=== PATIENT | female | born 1975 | race Caucasian/White ===

== ENCOUNTER 2017-06-30 18:53 | Emergency (ER) | payer MEDICARE, BC ==
[2017-06-30 18:58] VITALS: BP 145/81
--- NOTE | 2017-06-30 19:29 | ER Document Report ---
ED Medical Screen (RME) - General Chief Complaint: Abdominal Pain Stated Complaint: ABDOMINAL PAIN Time Seen by Provider: 06/30/17 19:27 Notes: Patient states she has had about 8 days of left flank pain that radiates to her left abdomen. She states she has seen her regular doctor a chiropractor and a GI doctor about the pain. She has no relief from the pain. She thought maybe she was constipated so she has taken some bowel regimens [id number] and has had a bowel movement but no real change of the pain. She is also being currently treated for urinary tract infection but this does not change the pain. She states that she has mostly been constipated but does have an occasional loose stool. She has some nausea but no vomiting. TRAVEL OUTSIDE OF THE [place] IN LAST 30 DAYS: No - Related Data Allergies/Adverse Reactions: No Known Allergies Allergy (Verified 06/30/17 18:54) Home Medications: Current Home Medications Cetirizine HCl [Zyrtec 10 mg Tablet] 1 tab PO DAILY 06/30/17 [History] Ciprofloxacin HCl [Cipro] 1 tab PO BID 06/30/17 [History] Hydrochlorothiazide 1 tab PO DAILY 06/30/17 [History] Losartan Potassium 1 tab PO DAILY 06/30/17 [History] Montelukast Sodium [Singulair 10 mg Tablet] 1 tab PO DAILY 06/30/17 [History] Past Medical History - Social History Frequency of alcohol use: None Drug Abuse: None - Past Medical History Cardiac Medical History: Denies: Hx Heart Attack, Hx Hypertension Pulmonary Medical History: Denies: Hx Asthma Neurological Medical History: Denies: Hx Cerebrovascular Accident, Hx Seizures Renal/ Medical History: Denies: Hx Peritoneal Dialysis GI Medical History: Denies: Hx Hepatitis, Hx Hiatal Hernia, Hx Ulcer Musculoskeltal Medical History: Reports Hx Multiple Sclerosis Infectious Medical History: Denies: Hx Hepatitis Past Surgical History: Reports: Hx Cholecystectomy. Denies: Hx Mastectomy, Hx Open Heart Surgery, Hx Pacemaker - Immunizations Immunizations up to date: Yes Hx Diphtheria, Pertussis, Tetanus Vaccination: Yes Physical Exam - Vital signs Vitals: Temp Pulse Resp BP Pulse Ox 98.0 F 84 16 145/81 H 99 06/30/17 18:57 06/30/17 18:57 06/30/17 18:57 06/30/17 18:57 06/30/17 18:57 Course - Vital Signs Vital signs: Temp Pulse Resp BP Pulse Ox 98.0 F 84 16 145/81 H 99 06/30/17 18:57 06/30/17 18:57 06/30/17 18:57 06/30/17 18:57 06/30/17 18:57
[2017-06-30 20:01] LABS: ABSOLUTE BASOPHILS # (AUTO) 0.1 10^3/uL (0.0-0.2); ABSOLUTE EOSINOPHILS # (AUTO) 0.2 10^3/uL (0.0-0.6); ABSOLUTE LYMPHOCYTES (AUTO) 3.6 10^3/uL (0.5-4.7); ABSOLUTE MONOCYTES (AUTO) 0.8 10^3/uL (0.1-1.4); EOSINOPHILS % (AUTO) 2.1 % (0-6); HEMATOCRIT 44.1 % (36.0-47.0); HEMOGLOBIN 14.7 g/dL (12.0-15.5); LYMPHOCYTES % (AUTO) 30.5 % (13-45); MEAN CORPUSCULAR HEMOGLOBIN 29.6 pg (27.0-33.4); MEAN CORPUSCULAR HGB CONC 33.3 g/dL (32.0-36.0); MEAN CORPUSCULAR VOLUME 89 fl (80-97); MONOCYTES % (AUTO) 6.6 % (3-13); RED BLOOD COUNT 4.95 10^6/uL (3.72-5.28); RED CELL DISTRIBUTION WIDTH 13.5 % (11.5-14.0); SEGMENTED NEUTROPHILS % (AUTO) 59.8 % (42-78); WHITE BLOOD COUNT 11.6 10^3/uL (4.0-10.5)
[2017-06-30 20:07] LABS: APPEARANCE,URINE CLEAR; BILIRUBIN,URINE NEGATIVE (NEGATIVE); GLUCOSE, URINE NEGATIVE (NEGATIVE); KETONES,URINE NEGATIVE (NEGATIVE); LEUKOCYTE ESTERASE,URINE NEGATIVE (NEGATIVE); NITRITE,URINE NEGATIVE (NEGATIVE); PROTEIN,URINE NEGATIVE (NEGATIVE); URINE SPECIFIC GRAVITY 1.012; UROBILINOGEN,URINE NEGATIVE mg/dL (<2.0)
[2017-06-30 20:14] LABS: ALANINE AMINOTRANSFERASE 36 U/L (9-52); ALBUMIN 4.7 g/dL (3.5-5.0); ALKALINE PHOSPHATASE 58 U/L (38-126); ANION GAP 12 (5-19); ASPARTATE AMINO TRANSFERASE 19 U/L (14-36); BILIRUBIN,DIRECT 0.3 mg/dL (0.0-0.4); BILIRUBIN,TOTAL 0.4 mg/dL (0.2-1.3); BLOOD UREA NITROGEN 15 mg/dL (7-20); CALCIUM 10.2 mg/dL (8.4-10.2); CARBON DIOXIDE 27 mmol/L (22-30); CHLORIDE 102 mmol/L (98-107); CREATININE RESULT 0.85 mg/dL (0.52-1.25); GLUCOSE 95 mg/dL (75-110); POTASSIUM 3.8 mmol/L (3.6-5.0); SODIUM 141.2 mmol/L (137-145)
--- NOTE | 2017-06-30 20:18 | ER Document Report ---
ED GI/ - General Chief Complaint: Abdominal Pain Stated Complaint: ABDOMINAL PAIN Time Seen by Provider: 06/30/17 19:27 Notes: The patient is a 41-year-old female, past medical history chronic constipation, presents with about 2 weeks of left upper quadrant abdominal pain and left flank pain. She was started on Cipro about 5 days ago by her primary care physician for possible kidney infection, but the pain is still present. She is also having some hematuria. Patient has seen her GI doctor and chiropractor for this issue this week. She denies nausea, vomiting, fevers, dysuria, headache, numbness, tingling, diarrhea, constipation or rash. TRAVEL OUTSIDE OF THE [place] IN LAST 30 DAYS: No - Related Data Allergies/Adverse Reactions: No Known Allergies Allergy (Verified 06/30/17 18:54) Home Medications: Current Home Medications Cetirizine HCl [Zyrtec 10 mg Tablet] 1 tab PO DAILY 06/30/17 [History] Ciprofloxacin HCl [Cipro] 1 tab PO BID 06/30/17 [History] Hydrochlorothiazide 1 tab PO DAILY 06/30/17 [History] Losartan Potassium 1 tab PO DAILY 06/30/17 [History] Montelukast Sodium [Singulair 10 mg Tablet] 1 tab PO DAILY 06/30/17 [History] Past Medical History - General Information source: Patient - Social History Smoking Status: Never Smoker Frequency of alcohol use: None Drug Abuse: None Family History: Reviewed & Not Pertinent Patient has suicidal ideation: No Patient has homicidal ideation: No - Past Medical History Cardiac Medical History: Denies: Hx Heart Attack, Hx Hypertension Pulmonary Medical History: Denies: Hx Asthma Neurological Medical History: Denies: Hx Cerebrovascular Accident, Hx Seizures Renal/ Medical History: Denies: Hx Peritoneal Dialysis GI Medical History: Denies: Hx Hepatitis, Hx Hiatal Hernia, Hx Ulcer Musculoskeltal Medical History: Reports Hx Multiple Sclerosis Infectious Medical History: Denies: Hx Hepatitis Past Surgical History: Reports: Hx Cholecystectomy. Denies: Hx Mastectomy, Hx Open Heart Surgery, Hx Pacemaker - Immunizations Immunizations up to date: Yes Hx Diphtheria, Pertussis, Tetanus Vaccination: Yes Review of Systems - Review of Systems Notes: REVIEW OF SYSTEMS: CONSTITUTIONAL: -fevers, -chills EENT: -eye pain, -difficulty swallowing, -nasal congestion CARDIOVASCULAR:-chest pain, -syncope. RESPIRATORY: -cough, -SOB GASTROINTESTINAL: +LUQ abdominal pain, -nausea, -vomiting, -diarrhea GENITOURINARY: -dysuria, +hematuria MUSCULOSKELETAL: +left flank pain, -neck pain SKIN: -rash or skin lesions. HEMATOLOGIC: -easy bruising or bleeding. LYMPHATIC: -swollen, enlarged glands. NEUROLOGICAL: -altered mental status or loss of consciousness, -headache, - neurologic symptoms PSYCHIATRIC: -anxiety, -depression. ALL OTHER SYSTEMS REVIEWED AND NEGATIVE. Physical Exam - Vital signs Vitals: Temp Pulse Resp BP Pulse Ox 98.0 F 84 16 145/81 H 99 06/30/17 18:57 06/30/17 18:57 06/30/17 18:57 06/30/17 18:57 06/30/17 18:57 - Notes Notes: PHYSICAL EXAMINATION: GENERAL: Well-appearing, well-nourished and in no acute distress. HEAD: Atraumatic, normocephalic. EYES: Pupils equal round and reactive to light, extraocular movements intact, sclera anicteric, conjunctiva are normal. ENT: nares patent, oropharynx clear without exudates. Moist mucous membranes. NECK: Normal range of motion, supple without lymphadenopathy LUNGS: Breath sounds clear to auscultation bilaterally and equal. No wheezes rales or rhonchi. HEART: Regular rate and rhythm without murmurs ABDOMEN: Soft, nontender, normoactive bowel sounds. No guarding, no rebound. No masses appreciated. EXTREMITIES: Normal range of motion, no pitting or edema. No cyanosis. NEUROLOGICAL: Cranial nerves grossly intact. Normal speech, normal gait. Normal sensory and motor exams. PSYCH: Normal mood, normal affect. SKIN: Warm, Dry, normal turgor, no rashes or lesions noted. Course - Re-evaluation Re-evalutation: Patient's pain ongoing for the past 2 weeks and has already seen her primary care physician, and GI doctor and chiropractor. CT abdomen/pelvis performed to assess for presence of kidney stones, but no left-sided kidney stones seen. Blood work and urine are unremarkable. Patient will follow up with her primary care physician and GI doctor for further evaluation and treatment. - Vital Signs Vital signs: Temp Pulse Resp BP Pulse Ox 98.0 F 84 16 145/81 H 99 06/30/17 18:57 06/30/17 18:57 06/30/17 18:57 06/30/17 18:57 06/30/17 18:57 - Laboratory Result Diagrams: 06/30/17 19:48 06/30/17 19:48 Laboratory results interpreted by me: 06/30/17 06/30/17 19:48 19:48 WBC 11.6 H Urine Blood MODERATE H - Diagnostic Test Radiology reviewed: Image reviewed, Reports reviewed Radiology results interpreted by me: CT A/P: NAD Discharge - Discharge Clinical Impression: Left flank pain Abdominal pain Qualifiers: Abdominal location: left upper quadrant Qualified Code(s): R10.12 - Left upper quadrant pain Condition: Stable Disposition: HOME, SELF-CARE Additional Instructions: ABDOMINAL PAIN: There are many causes of abdominal pain. Pain can mean a serious problem requiring surgery (such as appendicitis). It can also be an innocent problem that goes away on its own (such as a viral infection). Often, time must pass to determine the cause of pain. The physician does not feel that hospitalization is necessary, at present. Things may change within the next 24 hours. Call the doctor or come back for re- examination if any problems occur, such as: (1) Pain that becomes more severe, steady, or becomes concentrated in one specific area. Also, pain that is more severe with movement or coughing. (2) Vomiting that persists or becomes more frequent. (3) Blood in the vomitus, urine, or bowel movements. Blood in the stool may have a tarry or black appearance. (4) Shaking chills or fever greater than 100 degrees F. (5) The abdomen becomes more distended or swollen. (6) Bowel movements cease. (7) Failure to improve as expected. NORMAL EXAM AND WORKUP: At this time, your examination and workup show no significant abnormality. No significant abnormal physical findings are noted. All laboratory, EKG, and imaging (x-ray, CT scans, ultrasound) studies that were ordered show no significant abnormality. Although your examination and all studies that were ordered showed no significant abnormal finding, there are no examinations and no studies that are 100% accurate. There is always the possibility that some abnormality could exist and not be detected with physical examination or within the limits and capabilities of laboratory and other studies. You should return or follow up as you were instructed on your visit today for further evaluation if your symptoms do not resolve. FOLLOW-UP CARE: If you have been referred to a physician for follow-up care, call the physician s office for an appointment as you were instructed or within the next two days. If you experience worsening or a significant change in your symptoms, notify the physician immediately or return to the Emergency Department at any time for re-evaluation. Flank Pain We weren't able to prove an exact cause for your flank pain. Pain in the flank can be caused by a muscle strain or spasm. Sometimes a kidney stone causes pain, but can't be found on our tests. Infection in the kidney should be evident on a urine test. Early shingles can occasionally cause flank pain, without the rash that proves the diagnosis. On rare occasions, disease of the pancreas, aorta, spleen, or colon can create pain in the flank. At this time, there's no evidence of a dangerous condition, and it seems safe for you to be at home. If the pain goes away and does not come back, no further testing will be needed. If pain persists, or becomes more severe, we may need to repeat some tests or order additional new testing. Blood in the urine, urgency to urinate frequently, and pain that radiates to the groin can indicate a kidney stone. Fever may mean that the pain is due to infection, either of the kidney or the colon (diverticulitis). If your pain is early shingles, you should develop an eruption of blisters in the painful area within a few days. Call the doctor or return if you have pain that is spreading or becoming more severe, pain that does not resolve with time, fever, or any other new symptoms. Forms: Elevated Blood Pressure Referrals: QUINTON SOLORIO MD [ACTIVE STAFF] - Follow up as needed
--- NOTE | 2017-06-30 20:40 | RADIOLOGY REPORT (SQ) ---
EXAM DESCRIPTION: CT LTD RENAL STONE PROTOCOL ON COMPLETED DATE/TIME: 06/30/2017 8:23 pm REASON FOR STUDY: left flank pain, hematuria COMPARISON: None. TECHNIQUE: CT scan of the abdomen and pelvis performed without intravenous or oral contrast. Images reviewed with lung, soft tissue, and bone windows. Reconstructed coronal and sagittal MPR images revi ewed. All images stored on PACS. All CT scanners at this facility use dose modulation, iterative reconstruction, and/or weight based d osing when appropriate to reduce radiation dose to as low as reasonably achievable (ALARA). [facility]: Dose Right [facility]: CareDose [facility]: Dose Right [facility]: Teradose 4D [facility]: [employer] RADIATION DOSE: CT Rad equipment meets quality standard of care and radiation dose reduction techniq ues were employed. CTDIvol: 18.7 mGy. DLP: 1008 mGy-cm.mGy. LIMITATIONS: None. FINDINGS: LOWER CHEST: No significant findings. No nodules or infiltrates. NON-CONTRASTED LIVER, SPLEEN, ADRENALS: Evaluation limited by lack of IV contrast. No identified sign ificant masses. PANCREAS: No masses. No peripancreatic inflammatory changes. GALLBLADDER: No identified stones by CT criteria. No inflammatory changes to suggest cholecystitis. RIGHT KIDNEY AND URETER: No suspicious masses. Assessment limited by lack of IV contrast. Small par enchymal calcifications. No hydronephrosis or hydroureter. LEFT KIDNEY AND URETER: No suspicious masses. Assessment limited by lack of IV contrast. No signifi cant calcifications. No hydronephrosis or hydroureter. AORTA AND RETROPERITONEUM: No aneurysm. No retroperitoneal masses or adenopathy. BOWEL AND PERITONEAL CAVITY: No obvious masses or inflammatory changes. No free fluid. APPENDIX: Normal. PELVIS, BLADDER, AND ABDOMINAL WALL:No abnormal masses. No free fluid. Bladder normal. BONES: No acute findings. OTHER: No other significant finding. IMPRESSION: NO ACUTE PROCESS IN THE ABDOMEN OR PELVIS. No hydronephrosis or hydroureter. Right neph rolithiasis. COMMENT: Quality ID # [id number]: Final reports with documentation of one or more dose reduction techniques (e.g., Automated exposure control, adjustment of the mA and/or kV according to patient size, use of iterative reconstruction technique) TECHNICAL DOCUMENTATION: JOB ID: [id number] [place]-72 2010 [employer]- All Rights Reserved
== END 2017-06-30 21:05 | disposition home or self-care (01) ==
LOC: ER 18:53
DX: R10.12 Left upper quadrant pain (principal); R31.9 Hematuria, unspecified; G35 Multiple sclerosis; Z90.49 Acquired absence of other specified parts of digestive tract
CPT/HCPCS: 36415; 76380; 80053; 81001; 85025; 99284

== ENCOUNTER 2017-08-26 07:20 | Emergency (ER) | payer MEDICARE, BC ==
--- NOTE | 2017-08-26 07:41 | ER Document Report ---
ED Cardiac - General Chief Complaint: Chest Tightness Stated Complaint: CHEST TIGHTNESS Time Seen by Provider: 08/26/17 07:39 Mode of Arrival: Ambulatory Information source: Patient Notes: Patient is a 42-year-old female who presents to the ER today for chest tightness that began yesterday. Patient has MS and also last month was diagnosed with H. 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 Patient was given amoxicillin, clarithromycin and omeprazole to start, however she states she never started it because she followed up with her primary care provider who then diagnosed her with a sinus infection, told her not to take 3 medications, gave her a different antibiotic instead and told her that "they would reevaluate in a month if she needed to take the medications for H. pylori or not." Patient states that since that time she has had chest pain in the center of her chest but yesterday got worse. She admits to nausea but denies any vomiting or shortness of breath. She is on blood pressure medication but denies any history of cholesterol issues, heart attack or stroke. She denies any vomiting or diarrhea, fevers or chills. TRAVEL OUTSIDE OF THE [place] IN LAST 30 DAYS: No - Related Data Allergies/Adverse Reactions: No Known Allergies Allergy (Verified 06/30/17 18:54) Past Medical History - General Information source: Patient - Social History Smoking Status: Never Smoker Family History: Reviewed & Not Pertinent - Past Medical History Cardiac Medical History: Denies: Hx Heart Attack, Hx Hypertension Pulmonary Medical History: Denies: Hx Asthma Neurological Medical History: Denies: Hx Cerebrovascular Accident, Hx Seizures Renal/ Medical History: Denies: Hx Peritoneal Dialysis GI Medical History: Denies: Hx Hepatitis, Hx Hiatal Hernia, Hx Ulcer Musculoskeltal Medical History: Reports Hx Multiple Sclerosis Infectious Medical History: Denies: Hx Hepatitis Past Surgical History: Reports: Hx Cholecystectomy. Denies: Hx Mastectomy, Hx Open Heart Surgery, Hx Pacemaker - Immunizations Immunizations up to date: Yes Hx Diphtheria, Pertussis, Tetanus Vaccination: Yes Review of Systems - Review of Systems Constitutional: No symptoms reported EENT: No symptoms reported Cardiovascular: See HPI Respiratory: No symptoms reported Gastrointestinal: See HPI Genitourinary: No symptoms reported Female Genitourinary: No symptoms reported Musculoskeletal: No symptoms reported Skin: No symptoms reported Hematologic/Lymphatic: No symptoms reported Neurological/Psychological: No symptoms reported Physical Exam - Notes Notes: PHYSICAL EXAMINATION: GENERAL: Anxious appearing, but in no acute distress. HEAD: Atraumatic, normocephalic. EYES: Pupils equal round and reactive to light, extraocular movements intact, sclera anicteric, conjunctiva are normal. ENT: ear canals without erythema or foreign body, TMs pearly wills with good bony landmarks, nares patent, oropharynx clear without exudates. Moist mucous membranes. NECK: Normal range of motion, supple without lymphadenopathy LUNGS: CTAB and equal. No wheezes rales or rhonchi. HEART: Regular rate and rhythm without murmurs ABDOMEN: Soft, mild epigastric tenderness. No guarding, no rebound BACK: no vertebral tenderness, normal ROM GI/: no CVA tenderness EXTREMITIES: Normal range of motion, no pitting edema. No cyanosis. NEUROLOGICAL: Cranial nerves grossly intact. Normal sensory/motor exams. PSYCH: Anxious SKIN: Warm, Dry, normal turgor, no rashes or lesions noted Course - Re-evaluation Re-evalutation: 08/26/17 11:34 Lab work is unremarkable including normal cardiac enzymes, EKG reveals a normal sinus rhythm without evidence of ischemia or abnormality. Chest x-ray reports no acute pathology, CT renal protocol was performed due to patient having some blood in her urine and stating that she has a kidney stone, however did report a kidney stone in the right kidney that is nonobstructing and should not be causing any pain. Patient did not feel any better after GI cocktail. She was indeed quite anxious here in the emergency department even asking about other patients she could hear and stating that she was worried about them. I think that anxiety is a large component of patient's chest discomfort today although I think the H. pylori diagnosis that is gone untreated may also have a large role in her chest pain. I have advised her to start her amoxicillin, clarithromycin and omeprazole that she already has filled and waiting on her at home but just was instructed not to take it. H. pylori was drawn and is pending at this time. - Laboratory Result Diagrams: 08/26/17 07:54 08/26/17 07:54 Laboratory results interpreted by me: 08/26/17 08/26/17 08/26/17 07:54 07:54 09:20 WBC 11.1 H Glucose 152 H Urine Protein 30 H Urine Ketones 80 H Urine Blood SMALL H Discharge - Discharge Clinical Impression: Helicobacter pylori (H. pylori) Chest pain Qualifiers: Chest pain type: unspecified Qualified Code(s): R07.9 - Chest pain, unspecified Condition: Stable Disposition: HOME, SELF-CARE Additional Instructions: Return immediately for any new or worsening symptoms. Follow up with primary care provider, call tomorrow to make followup appointment. Prescriptions: Amoxicillin 500 mg PO BID #8 capsule Clarithromycin 500 mg PO TID #12 tablet Fluconazole [Diflucan] 200 mg PO PRN PRN #2 tablet PRN Reason: Lactobacillus 3/Fos/Pantethine [Probiotic & Acidophilus Cap] 1 each PO DAILY # 30 capsule Omeprazole 20 mg PO DAILY #42 tablet. Sucralfate [Carafate 1 gm Tablet] 1 gm PO ACHS #40 tablet Forms: Return to Work Referrals: SERA MCGRAW MD [Primary Care Provider] - Follow up as needed
[2017-08-26] MEDS ORDERED: DIPHENHYDRAMINE HCL 25 MG/10 ML UDC PO ONE (08:09)
[2017-08-26] MEDS ORDERED: MAG HYDROX/AL HYDROX/SIMETH SUSP 30 ML UDCUP PO ONE (08:09)
[2017-08-26] MEDS ORDERED: LIDOCAINE 2% VISCOUS SOLN 20 ML UDCUP PO ONE (08:09)
[2017-08-26 08:19] LABS: ABSOLUTE BASOPHILS # (AUTO) 0.1 10^3/uL (0.0-0.2); ABSOLUTE EOSINOPHILS # (AUTO) 0.2 10^3/uL (0.0-0.6); ABSOLUTE LYMPHOCYTES (AUTO) 2.7 10^3/uL (0.5-4.7); ABSOLUTE MONOCYTES (AUTO) 0.6 10^3/uL (0.1-1.4); ABSOLUTE NEUT (AUTO) 7.6 10^3/uL (1.7-8.2); BASOPHILS % (AUTO) 0.6 % (0-2); EOSINOPHILS % (AUTO) 1.6 % (0-6); HEMATOCRIT 41.2 % (36.0-47.0); HEMOGLOBIN 13.9 g/dL (12.0-15.5); LYMPHOCYTES % (AUTO) 24.6 % (13-45); MEAN CORPUSCULAR HEMOGLOBIN 29.8 pg (27.0-33.4); MEAN CORPUSCULAR HGB CONC 33.7 g/dL (32.0-36.0); MEAN CORPUSCULAR VOLUME 89 fl (80-97); MONOCYTES % (AUTO) 5.2 % (3-13); PLATELET COUNT 318 10^3/uL (150-450); RED BLOOD COUNT 4.65 10^6/uL (3.72-5.28); RED CELL DISTRIBUTION WIDTH 12.9 % (11.5-14.0); TOTAL CELLS COUNTED % (AUTO) 100 %; WHITE BLOOD COUNT 11.1 10^3/uL (4.0-10.5)
[2017-08-26 08:33] LABS: ALANINE AMINOTRANSFERASE 29 U/L (9-52); ALBUMIN 4.2 g/dL (3.5-5.0); ALKALINE PHOSPHATASE 50 U/L (38-126); ANION GAP 11 (5-19); ASPARTATE AMINO TRANSFERASE 18 U/L (14-36); BILIRUBIN,DIRECT 0.4 mg/dL (0.0-0.4); BILIRUBIN,TOTAL 0.6 mg/dL (0.2-1.3); BLOOD UREA NITROGEN 18 mg/dL (7-20); CALCIUM 9.6 mg/dL (8.4-10.2); CARBON DIOXIDE 24 mmol/L (22-30); CHLORIDE 103 mmol/L (98-107); CREATINE KINASE 43 U/L (30-135); GLUCOSE 152 mg/dL (75-110); LIPASE 78.5 U/L (23-300); POTASSIUM 4.4 mmol/L (3.6-5.0); TOTAL PROTEIN 7.1 g/dL (6.3-8.2)
--- NOTE | 2017-08-26 08:33 | RADIOLOGY REPORT (SQ) ---
EXAM DESCRIPTION: CHEST SINGLE VIEW COMPLETED DATE/TIME: 08/26/2017 8:23 am REASON FOR STUDY: cp COMPARISON: None. EXAM PARAMETERS: NUMBER OF VIEWS: One view. TECHNIQUE: Single frontal radiographic view of the chest acquired. RADIATION DOSE: NA LIMITATIONS: None. FINDINGS: LUNGS AND PLEURA: No opacities, masses or pneumothorax. No pleural effusion. MEDIASTINUM AND HILAR STRUCTURES: No masses. Contour normal. HEART AND VASCULAR STRUCTURES: Heart normal in size. Normal vasculature. BONES: No acute findings. HARDWARE: None in the chest. OTHER: No other significant finding. IMPRESSION: NO ACUTE RADIOGRAPHIC FINDING IN THE CHEST. TECHNICAL DOCUMENTATION: JOB ID: [id number] [employer]- All Rights Reserved
[2017-08-26 08:44] LABS: CREATINE KINASE MB 0.39 ng/mL (<4.55)
[2017-08-26 08:47] LABS: TROPONIN I < 0.012 ng/mL
[2017-08-26] MEDS ORDERED: LORAZEPAM INJ 2 MG/1 ML VIAL IV ONE (09:41)
[2017-08-26 09:48] LABS: AMORPHOUS SEDIMENT,URINE TRACE /HPF; APPEARANCE,URINE CLOUDY; BILIRUBIN,URINE NEGATIVE (NEGATIVE); COLOR,URINE YELLOW; GLUCOSE, URINE NEGATIVE (NEGATIVE); KETONES,URINE 80 mg/dL (NEGATIVE); LEUKOCYTE ESTERASE,URINE NEGATIVE (NEGATIVE); NITRITE,URINE NEGATIVE (NEGATIVE); PROTEIN,URINE 30 mg/dL (NEGATIVE); URINE SPECIFIC GRAVITY 1.031; UROBILINOGEN,URINE NEGATIVE mg/dL (<2.0)
[2017-08-26] MEDS ORDERED: KETOROLAC TROMETHAMINE INJ/PF 30 MG/1 ML SDV IV ONE (09:52)
[2017-08-26 10:09] LABS: URINE AMPHETAMINES SCREEN NEGATIVE; URINE BARBITURATES SCREEN NEGATIVE; URINE BENZODIAZEPINES SCREEN NEGATIVE; URINE COCAINE SCREEN NEGATIVE; URINE MARIJUANA (THC) SCREEN NEGATIVE; URINE METHADONE SCREEN NEGATIVE; URINE PHENCYCLIDINE SCREEN NEGATIVE
--- NOTE | 2017-08-26 10:41 | RADIOLOGY REPORT (SQ) ---
EXAM DESCRIPTION: CT LTD RENAL STONE PROTOCOL ON COMPLETED DATE/TIME: 08/26/2017 10:31 am REASON FOR STUDY: hematuria, flank pain COMPARISON: 06/30/2017 TECHNIQUE: CT scan of the abdomen and pelvis performed without intravenous or oral contrast. Images reviewed with lung, soft tissue, and bone windows. Reconstructed coronal and sagittal MPR images revi ewed. All images stored on PACS. All CT scanners at this facility use dose modulation, iterative reconstruction, and/or weight based d osing when appropriate to reduce radiation dose to as low as reasonably achievable (ALARA). [facility]: Dose Right [facility]: CareDose [facility]: Dose Right [facility]: Teradose 4D [facility]: Smart [employer] RADIATION DOSE: CT Rad equipment meets quality standard of care and radiation dose reduction techniq ues were employed. CTDIvol: 18.0 mGy. DLP: 1050 mGy-cm.mGy. LIMITATIONS: None. FINDINGS: LOWER CHEST: No significant findings. No nodules or infiltrates. NON-CONTRASTED LIVER, SPLEEN, ADRENALS: Evaluation limited by lack of IV contrast. No identified sign ificant masses. PANCREAS: No masses. No peripancreatic inflammatory changes. GALLBLADDER: Surgically absent. RIGHT KIDNEY AND URETER: No suspicious masses. Assessment limited by lack of IV contrast. 2 mm ston e lower pole. No hydronephrosis or hydroureter. LEFT KIDNEY AND URETER: No suspicious masses. Assessment limited by lack of IV contrast. No signifi cant calcifications. No hydronephrosis or hydroureter. AORTA AND RETROPERITONEUM: No aneurysm. No retroperitoneal masses or adenopathy. BOWEL AND PERITONEAL CAVITY: No obvious masses or inflammatory changes. No free fluid. APPENDIX: Normal. PELVIS, BLADDER, AND ABDOMINAL WALL:Small umbilical hernia containing fat. BONES: No significant findings. OTHER: No other significant finding. IMPRESSION: Small nonobstructing stone right kidney. COMMENT: Quality ID # [id number]: Final reports with documentation of one or more dose reduction techniques (e.g., Automated exposure control, adjustment of the mA and/or kV according to patient size, use of iterative reconstruction technique) TECHNICAL DOCUMENTATION: JOB ID: [id number] [employer]- All Rights Reserved
--- NOTE | 2017-08-26 11:06 | EKG REPORT ---
SEVERITY:- NORMAL ECG - SINUS RHYTHM : Confirmed by: Mango Day 26-Aug-2017 11:05:12
[2017-08-26 12:04] VITALS: BP 109/60
[2017-08-26] MEDS ORDERED: HYDROXYZINE PAMOATE 25 MG CAPSULE (4 CAP/ER DISP) PO PRN (12:38)
== END 2017-08-26 12:33 | disposition home or self-care (01) ==
LOC: ER 07:20
DX: B96.81 Helicobacter pylori [H. pylori] as the cause of diseases classified elsewhere (principal); R07.9 Chest pain, unspecified; G35 Multiple sclerosis; R11.0 Nausea; Z79.899 Other long term (current) drug therapy; I10 Essential (primary) hypertension
CPT/HCPCS: 93005; 99285; 96374; 96375; 36415; 82553; 82550; 83690; 85025; 81025; 80053; 81001; 84484; 80307; 71045; 76380; 93010; A9270; J3490 ×2; J1885; J2060

== ENCOUNTER 2017-08-31 09:22 | Observation (INO) | payer MEDICARE, BC, OTHER ==
[2017-08-25] MEDS: ZOLPIDEM TARTRATE 5 MG TABLET PO PRN (00:20)
[2017-08-31] MEDS ORDERED: ASPIRIN 325 MG TABLET PO ONE (10:15)
--- NOTE | 2017-08-31 10:16 | ER Document Report ---
ED Medical Screen (RME) - General Chief Complaint: Chest Pain Stated Complaint: CHEST PAIN Time Seen by Provider: 08/31/17 10:14 Mode of Arrival: Ambulatory Information source: Patient Notes: This is patient's third visit for chest pain in the last week. She states she has been told it is anxiety but she does not feel this is correct and the anxiety meds have not changed the pain. She is also been diagnosed with sinusitis and is on antibiotics. She is also been diagnosed with reflux and H. pylori. She states she has chest pain now going to the left arm. It started this morning. No previous history of cardiac evaluations. She was never a smoker. Patient does have hypertension. TRAVEL OUTSIDE OF THE [place] IN LAST 30 DAYS: No - Related Data Allergies/Adverse Reactions: No Known Allergies Allergy (Verified 06/30/17 18:54) Past Medical History - Social History Chew tobacco use (# tins/day): No Frequency of alcohol use: None Drug Abuse: None - Past Medical History Cardiac Medical History: Denies: Hx Heart Attack, Hx Hypertension Pulmonary Medical History: Denies: Hx Asthma Neurological Medical History: Denies: Hx Cerebrovascular Accident, Hx Seizures Renal/ Medical History: Denies: Hx Peritoneal Dialysis GI Medical History: Denies: Hx Hepatitis, Hx Hiatal Hernia, Hx Ulcer Musculoskeltal Medical History: Reports Hx Multiple Sclerosis Infectious Medical History: Denies: Hx Hepatitis Past Surgical History: Reports: Hx Cholecystectomy. Denies: Hx Mastectomy, Hx Open Heart Surgery, Hx Pacemaker - Immunizations Immunizations up to date: Yes Hx Diphtheria, Pertussis, Tetanus Vaccination: Yes Physical Exam - Vital signs Vitals: Temp Pulse Resp BP Pulse Ox 99 F 77 20 98/54 L 99 08/31/17 09:42 08/31/17 09:42 08/31/17 09:42 08/31/17 09:42 08/31/17 09:42 Course - Vital Signs Vital signs: Temp Pulse Resp BP Pulse Ox 99 F 77 20 116/88 H 99 08/31/17 09:42 08/31/17 09:42 08/31/17 09:42 08/31/17 10:09 08/31/17 09:42
[2017-08-31 10:42] LABS: APPEARANCE,URINE SLIGHTLY-CLOUDY; BILIRUBIN,URINE NEGATIVE (NEGATIVE); COLOR,URINE YELLOW; GLUCOSE, URINE NEGATIVE (NEGATIVE); KETONES,URINE TRACE mg/dL (NEGATIVE); LEUKOCYTE ESTERASE,URINE NEGATIVE (NEGATIVE); NITRITE,URINE NEGATIVE (NEGATIVE); PROTEIN,URINE NEGATIVE (NEGATIVE); URINE SPECIFIC GRAVITY 1.015; UROBILINOGEN,URINE NEGATIVE mg/dL (<2.0)
[2017-08-31 10:52] LABS: ABSOLUTE EOSINOPHILS # (AUTO) 0.1 10^3/uL (0.0-0.6); ABSOLUTE LYMPHOCYTES (AUTO) 2.2 10^3/uL (0.5-4.7); ABSOLUTE MONOCYTES (AUTO) 0.4 10^3/uL (0.1-1.4); ABSOLUTE NEUT (AUTO) 7.2 10^3/uL (1.7-8.2); BASOPHILS % (AUTO) 0.3 % (0-2); HEMATOCRIT 42.2 % (36.0-47.0); HEMOGLOBIN 14.4 g/dL (12.0-15.5); MEAN CORPUSCULAR HGB CONC 34.2 g/dL (32.0-36.0); MEAN CORPUSCULAR VOLUME 88 fl (80-97); MONOCYTES % (AUTO) 4.3 % (3-13); PLATELET COUNT 354 10^3/uL (150-450); RED CELL DISTRIBUTION WIDTH 13.3 % (11.5-14.0); SEGMENTED NEUTROPHILS % (AUTO) 72.4 % (42-78); TOTAL CELLS COUNTED % (AUTO) 100 %
[2017-08-31 11:19] LABS: ALANINE AMINOTRANSFERASE 51 U/L (9-52); ALBUMIN 4.9 g/dL (3.5-5.0); ALKALINE PHOSPHATASE 57 U/L (38-126); ANION GAP 14 (5-19); ASPARTATE AMINO TRANSFERASE 25 U/L (14-36); BILIRUBIN,DIRECT 0.1 mg/dL (0.0-0.4); BILIRUBIN,TOTAL 0.5 mg/dL (0.2-1.3); BLOOD UREA NITROGEN 15 mg/dL (7-20); CALCIUM 10.1 mg/dL (8.4-10.2); CARBON DIOXIDE 21 mmol/L (22-30); CHLORIDE 106 mmol/L (98-107); GLUCOSE 152 mg/dL (75-110); POTASSIUM 4.8 mmol/L (3.6-5.0); SODIUM 141.2 mmol/L (137-145); TOTAL PROTEIN 7.6 g/dL (6.3-8.2)
--- NOTE | 2017-08-31 11:22 | ER Document Report ---
ED Cardiac - General Chief Complaint: Chest Pain Stated Complaint: CHEST PAIN Time Seen by Provider: 08/31/17 10:14 Mode of Arrival: Ambulatory Notes: 42-year-old obese female patient to the emergency department chief complaint of chest pain. Patient states that she was seen here last week on Tuesday for chest pain. Was told that it was likely an ulcer in development because she had a positive H. pylori. Was placed on medications. Patient states that she has been taking the medications but not getting any better. Now the pain is radiating up into the left shoulder and down the left arm. Patient is very tearful. Father of a heart attack in his 60s but it was attributed to agent orange. Mother is a smoker with no medical problems. Patient denies smoking. No heavy alcohol use. Has a 7-year-old home. Nothing seems to make the pain better or worse. TRAVEL OUTSIDE OF THE [place] IN LAST 30 DAYS: No - HPI Patient complains to provider of: Chest pain, Chest tightness Quality of pain: Moderate Chest pain radiation location: Left arm, Left shoulder Severity now: Moderate Severity at worst: Moderate Pain level currently: 2 - Related Data Allergies/Adverse Reactions: No Known Allergies Allergy (Verified 06/30/17 18:54) Past Medical History - General Information source: Patient - Social History Smoking Status: Never Smoker Chew tobacco use (# tins/day): No Frequency of alcohol use: None Drug Abuse: None Lives with: Spouse/Significant other Family History: Reviewed & Not Pertinent Patient has suicidal ideation: No Patient has homicidal ideation: No - Past Medical History Cardiac Medical History: Reports: Hx Hypertension Denies: Hx Heart Attack Pulmonary Medical History: Denies: Hx Asthma Neurological Medical History: Denies: Hx Cerebrovascular Accident, Hx Seizures Renal/ Medical History: Denies: Hx Peritoneal Dialysis GI Medical History: Denies: Hx Hepatitis, Hx Hiatal Hernia, Hx Ulcer Musculoskeltal Medical History: Reports Hx Multiple Sclerosis Infectious Medical History: Denies: Hx Hepatitis Past Surgical History: Reports: Hx Cholecystectomy. Denies: Hx Mastectomy, Hx Open Heart Surgery, Hx Pacemaker - Immunizations Immunizations up to date: Yes Hx Diphtheria, Pertussis, Tetanus Vaccination: Yes Review of Systems - Review of Systems Constitutional: No symptoms reported. denies: Fever, Malaise, Weakness EENT: No symptoms reported. denies: Blurred vision, Double vision, Ear pain Cardiovascular: No symptoms reported, Chest pain. denies: Palpitations, Heart racing Respiratory: No symptoms reported Gastrointestinal: No symptoms reported, Diarrhea. denies: Abdominal pain, Vomiting Genitourinary: No symptoms reported Female Genitourinary: No symptoms reported. denies: , Vaginal discharge , Vaginal bleeding Musculoskeletal: No symptoms reported. denies: Back pain, Joint pain, Joint swelling, Muscle pain Skin: No symptoms reported. denies: Dryness, Lesions, Rash Hematologic/Lymphatic: No symptoms reported. denies: Anemia, Blood clots, Easy bleeding, Easy bruising Neurological/Psychological: No symptoms reported. denies: Depression, Weakness , Numbness Physical Exam - Vital signs Vitals: Temp Pulse Resp BP Pulse Ox 99 F 77 20 98/54 L 99 08/31/17 09:42 08/31/17 09:42 08/31/17 09:42 08/31/17 09:42 08/31/17 09:42 Interpretation: Normal - General General appearance: Appears well, Alert - HEENT Head: Normocephalic, Atraumatic Eyes: Normal Pupils: PERRL - Respiratory Respiratory status: No respiratory distress Chest status: Nontender Breath sounds: Normal Chest palpation: Normal - Cardiovascular Rhythm: Regular Heart sounds: Normal auscultation Murmur: No - Abdominal Inspection: Normal Distension: No distension Bowel sounds: Normal Tenderness: Nontender Organomegaly: No organomegaly - Back Back: Normal, Nontender - Extremities General upper extremity: Normal inspection, Nontender, Normal color, Normal ROM , Normal temperature General lower extremity: Normal inspection, Nontender, Normal color, Normal ROM , Normal temperature, Normal weight bearing. No: Anastasia's sign - Neurological Neuro grossly intact: Yes Cognition: Normal Orientation: AAOx4 Metcalf Coma Scale Eye Opening: Spontaneous Metcalf Coma Scale Verbal: Oriented Pedro Luis Coma Scale Motor: Obeys Commands Metcalf Coma Scale Total: 15 Speech: Normal Motor strength normal: LUE, RUE, LLE, RLE Sensory: Normal - Psychological Associated symptoms: Normal affect, Normal mood - Skin Skin Temperature: Warm Skin Moisture: Dry Skin Color: Normal Course - Re-evaluation Re-evalutation: 08/31/17 11:58 She is quite tearful. Obviously scared. Patient is nervous that she may be having heart problems. She definitely has some risk factors including morbid obesity and hypertension and positive family history. Basic workup at this time is negative with conclusion d-dimer. At this time I believe patient would benefit from a stress test but will need multiple cardiac enzymes. Will place in observation at this time for a rule out. Patient is comfortable with this plan. 08/31/17 12:02 Laboratory 08/31/17 08/31/17 08/31/17 10:21 10:36 10:36 WBC 10.0 RBC 4.80 Hgb 14.4 Hct 42.2 MCV 88 MCH 30.0 MCHC 34.2 RDW 13.3 Plt Count 354 Seg Neutrophils % 72.4 Lymphocytes % 22.0 Monocytes % 4.3 Eosinophils % 1.0 Basophils % 0.3 Absolute Neutrophils 7.2 Absolute Lymphocytes 2.2 Absolute Monocytes 0.4 Absolute Eosinophils 0.1 Absolute Basophils 0.0 D-Dimer < 0.27 Sodium Potassium Chloride Carbon Dioxide Anion Gap BUN Creatinine Est GFR ( Amer) Est GFR (Non-Af Amer) Glucose Calcium Total Bilirubin Direct Bilirubin Neonat Total Bilirubin Neonat Direct Bilirubin Neonat Indirect Bili AST ALT Alkaline Phosphatase Troponin I Total Protein Albumin Urine Color YELLOW Urine Appearance SLIGHTLY-CLOUDY Urine pH 5.0 Ur Specific [place] 1.015 Urine Protein NEGATIVE Urine Glucose (UA) NEGATIVE Urine Ketones TRACE H Urine Blood SMALL H Urine Nitrite NEGATIVE Urine Bilirubin NEGATIVE Urine Urobilinogen NEGATIVE Ur Leukocyte Esterase NEGATIVE Urine WBC (Auto) 1 Urine RBC (Auto) 1 Squamous Epi Cells Auto 13 Urine Mucus (Auto) RARE Urine Ascorbic Acid NEGATIVE Urine HCG, Qual NEGATIVE 08/31/17 08/31/17 10:36 10:36 WBC RBC Hgb Hct MCV MCH MCHC RDW Plt Count Seg Neutrophils % Lymphocytes % Monocytes % Eosinophils % Basophils % Absolute Neutrophils Absolute Lymphocytes Absolute Monocytes Absolute Eosinophils Absolute Basophils D-Dimer Sodium 141.2 Potassium 4.8 Chloride 106 Carbon Dioxide 21 L Anion Gap 14 BUN 15 Creatinine 0.79 Est GFR ( Amer) > 60 Est GFR (Non-Af Amer) > 60 Glucose 152 H Calcium 10.1 Total Bilirubin 0.5 Direct Bilirubin 0.1 Neonat Total Bilirubin Not Reportable Neonat Direct Bilirubin Not Reportable Neonat Indirect Bili Not Reportable AST 25 ALT 51 Alkaline Phosphatase 57 Troponin I < 0.012 Total Protein 7.6 Albumin 4.9 Urine Color Urine Appearance Urine pH Ur Specific [place] Urine Protein Urine Glucose (UA) Urine Ketones Urine Blood Urine Nitrite Urine Bilirubin Urine Urobilinogen Ur Leukocyte Esterase Urine WBC (Auto) Urine RBC (Auto) Squamous Epi Cells Auto Urine Mucus (Auto) Urine Ascorbic Acid Urine HCG, Qual Chest X-Ray 08/31/17 11:22 IMPRESSION: NO ACUTE RADIOGRAPHIC FINDING IN THE CHEST. Consulted with the hospitalist. Will admit to the hospital at this time for further testing and rule out of AR. Patient will need a stress test. Patient has hypertension, probable diabetes and is obese with a positive family history. - Vital Signs Vital signs: Temp Pulse Resp BP Pulse Ox 99 F 77 20 116/88 H 99 08/31/17 09:42 08/31/17 09:42 08/31/17 09:42 08/31/17 10:09 08/31/17 09:42 - Laboratory Result Diagrams: 08/31/17 10:36 08/31/17 10:36 Laboratory results interpreted by me: 08/31/17 08/31/17 10:21 10:36 Carbon Dioxide 21 L Glucose 152 H Urine Ketones TRACE H Urine Blood SMALL H - EKG Interpretation by Oh EKG shows normal: Sinus rhythm, [place], Intervals, QRS Complexes, ST-T Waves Discharge - Discharge Clinical Impression: Chest pain Qualifiers: Chest pain type: unspecified Qualified Code(s): R07.9 - Chest pain, unspecified Condition: Good Disposition: ADMITTED OBSERVATION Admitting Provider: Hospitalist - Sara Gomez Unit Admitted: Telemetry Referrals: SERA MCGRAW MD [Primary Care Provider] - Follow up as needed
--- NOTE | 2017-08-31 11:51 | RADIOLOGY REPORT (SQ) ---
EXAM DESCRIPTION: CHEST SINGLE VIEW COMPLETED DATE/TIME: 08/31/2017 11:32 am REASON FOR STUDY: cp COMPARISON: AP chest 08/26/2017 EXAM PARAMETERS: NUMBER OF VIEWS: One view. TECHNIQUE: Single frontal radiographic view of the chest acquired. RADIATION DOSE: NA LIMITATIONS: None. FINDINGS: LUNGS AND PLEURA: No opacities, masses or pneumothorax. No pleural effusion. MEDIASTINUM AND HILAR STRUCTURES: No masses. Contour normal. HEART AND VASCULAR STRUCTURES: Heart normal in size. Normal vasculature. BONES: No acute findings. HARDWARE: None in the chest. OTHER: No other significant finding. IMPRESSION: NO ACUTE RADIOGRAPHIC FINDING IN THE CHEST. TECHNICAL DOCUMENTATION: JOB ID: [id number] [email or web address]- All Rights Reserved
[2017-08-31] MEDS ORDERED: MORPHINE SULFATE 10 MG/ML INJ IV PRN (13:22)
--- NOTE | 2017-08-31 13:51 | EKG REPORT ---
SEVERITY:- NORMAL ECG - SINUS RHYTHM : Confirmed by: Jose Hsieh MD 31-Aug-2017 13:51:18
[2017-08-31] MEDS ORDERED: LIDOCAINE 2% VISCOUS SOLN 20 ML UDCUP PO PRN (15:06)
[2017-08-31] MEDS ORDERED: PANTOPRAZOLE SODIUM 40 MG VIAL IV ONE (15:45)
--- NOTE | 2017-08-31 20:28 | PDOC H&P ---
History of Present Illness Admission Date/PCP: 08/31/17 12:24 SERA MCGRAW MD Patient complains of: CHEST PAIN History of Present Illness: WILLAM ANTHONY is a 42 year old female who presented to the emergency department with chest pain. She states that her mid-sternal chest pressure started Saturday 08/26 and has been waxing/waning since then. She was evaluated at [facility] ED for the same complaint on 08/26 but her symptoms were thought to be related to her recent diagnosis of H. pylori. She was treated with Maalox and viscous lidocaine, then discharged home. The patient became concerned this morning when she woke up with the same chest pain that was now radiating to her left upper arm. The patient states she took Tums, which offered no relief. The patient states her pain is not exacerbated with activity or deep breathing. She states that her pain has been constant since this morning. While in the emergency department she was given full dose aspirin. Patient states she is still experiencing chest pain. PMH includes hypertension, multiple sclerosis (untreated), H pylori Past Medical History Cardiac Medical History: Reports: Hypertension Denies: Myocardial Infarction Pulmonary Medical History: Denies: Asthma Neurological Medical History: Denies: Seizures Neurological History Note: MULTIPLE SCLEROSIS (UNMEDICATED) GI Medical History: Reports: Peptic Ulcer Disease, Other - H.Pylori Denies: Hepatitis, Hiatal Hernia GI History Note: Colonoscopy and EGD done because patient was having episodes of stool incontinence. Discovered H.pylori as incidental finding Hematology: Denies: Anemia, Sickle Cell Disease Past Surgical History Past Surgical History: Reports: Cholecystectomy Denies: Amputation, Mastectomy, Pacemaker Social History Information Source: Patient Lives with: Spouse/Significant other Smoking Status: Never Smoker Family History Family History: CAD, Other - FATHER - [place] Parental Family History Reviewed: Yes Children Family History Reviewed: Yes Sibling(s) Family History Reviewed.: Yes Medication/Allergy Home Medications: Amoxicillin 1,000 mg PO Q12 08/31/17 Clarithromycin [Biaxin 500 mg Tablet] 1 tab PO Q12 08/31/17 L.acidoph,Paracasei, B.lactis [Probiotic] 1 each PO DAILY 08/31/17 Losartan Potassium [Cozaar 50 mg Tablet] 50 mg PO DAILY 08/31/17 Melatonin [Melatonin 5 mg Tablet] 10 mg PO QHS 08/31/17 Omeprazole 20 mg PO Q12 08/31/17 Allergies/Adverse Reactions: No Known Allergies Allergy (Verified 06/30/17 18:54) Review of Systems Constitutional: ABSENT: chills, fever(s), headache(s), weight gain, weight loss Eyes: ABSENT: visual disturbances Ears: ABSENT: hearing changes Cardiovascular: PRESENT: chest pain - ENDORSES CONSTANT. ABSENT: dyspnea on exertion, edema, orthropnea, palpitations Respiratory: ABSENT: cough, hemoptysis Gastrointestinal: PRESENT: heartburn. ABSENT: abdominal pain, constipation, diarrhea, hematemesis, hematochezia, nausea, vomiting Genitourinary: ABSENT: dysuria, hematuria Musculoskeletal: ABSENT: joint swelling Integumentary: ABSENT: rash, wounds Neurological: ABSENT: abnormal gait, abnormal speech, confusion, dizziness, focal weakness, syncope Psychiatric: ABSENT: anxiety, depression, homidical ideation, suicidal ideation Endocrine: ABSENT: cold intolerance, heat intolerance, polydipsia, polyuria Hematologic/Lymphatic: ABSENT: easy bleeding, easy bruising Physical Exam Vital Signs: Temp Pulse Resp BP Pulse Ox 99 F 77 11 L 122/73 99 08/31/17 09:42 08/31/17 09:42 08/31/17 13:01 08/31/17 13:01 08/31/17 13:01 General appearance: PRESENT: no acute distress, well-developed, well-nourished Head exam: PRESENT: atraumatic, normocephalic Eye exam: PRESENT: conjunctiva pink, EOMI, PERRLA. ABSENT: scleral icterus Ear exam: PRESENT: normal external ear exam Mouth exam: PRESENT: moist, tongue midline Neck exam: ABSENT: carotid bruit, JVD, lymphadenopathy, thyromegaly Respiratory exam: PRESENT: clear to auscultation melonie. ABSENT: rales, rhonchi, wheezes Cardiovascular exam: PRESENT: RRR, +S1, +S2. ABSENT: diastolic murmur, rubs, systolic murmur Pulses: PRESENT: normal radial pulses, normal dorsalis pedis pul Vascular exam: PRESENT: normal capillary refill GI/Abdominal exam: PRESENT: normal bowel sounds, soft. ABSENT: distended, guarding, mass, organolmegaly, rebound, tenderness Rectal exam: PRESENT: deferred Extremities exam: PRESENT: full ROM. ABSENT: calf tenderness, clubbing, pedal edema Neurological exam: PRESENT: alert, awake, oriented to person, oriented to place , oriented to time, oriented to situation, CN II-XII grossly intact. ABSENT: motor sensory deficit Psychiatric exam: PRESENT: appropriate affect, normal mood. ABSENT: homicidal ideation, suicidal ideation Skin exam: PRESENT: dry, intact, warm. ABSENT: cyanosis, rash Results Impressions: Chest X-Ray 08/31/17 11:22 IMPRESSION: NO ACUTE RADIOGRAPHIC FINDING IN THE CHEST. Status: Imported from PACS Assessment & Plan - Diagnosis (1) Chest pain Qualifiers: Chest pain type: unspecified Qualified Code(s): R07.9 - Chest pain, unspecified Is this a current diagnosis for this admission?: Yes Plan: Sternal chest pressure. Patient states it started last Saturday 08/26. She came to the emergency department that day for her chest pain, but her symptoms were believed to be related to her recent diagnosis of H. pylori. She was discharged home after receiving a GI cocktail of Maalox and viscous lidocaine. The patient states that her chest pain persisted throughout the day and into Tuesday and Tuesday. She reports that her chest pain returned again this morning, and she became worried when the pain radiated to her left upper arm, so she returned to the emergency department. While in the ED she received 325 mg of aspirin, and states she has no relief. D-dimer negative. Her EKG shows normal sinus rhythm with no evidence of acute ischemia or infarct. Troponin < 0.27, will continue to trend every 6 hours 2. Cardiology has been consulted. Routine echocardiogram and stress test have been ordered. Morphine and SL nitro as needed for chest pain. At this time, I don't believe that her symptoms are cardiac in nature - given her normal EKG, normal cardiac enzymes, and atypical symptoms. I will trial a cocktail of maalox and viscous lidocaine to see if that offers relief. if results of Echo, blood work, and stress test are benign, patient will likely be discharged home and instructed to follow up with her PMD and rehabilitation therapy technician. (2) Helicobacter pylori (H. pylori) Is this a current diagnosis for this admission?: Yes Plan: Patient states she was recently diagnosed with H pylori. This is an incidental finding by her rehabilitation therapy technician. She was being worked up for bowel incontinence, thought to be related to her MS, when it was discovered that she was +H pylori. Her ?rehabilitation therapy technician? originally instructed her NOT to take amoxicillin, Flagyl, clarithromycin, as she was taking antibiotics at the time for a sinus infection. When the patient came to the ER 08/26, she was instructed by the ER physician to start taking her antibiotic regimen for H pylori. The patient states she does not like taking the medications because "they give me diarrhea" so it is unclear how compliant she has been with her therapy. She will be restarted on these medications as soon as her condition stabilizes. (3) Hypertension Qualifiers: Hypertension type: essential hypertension Qualified Code(s): I10 - Essential (primary) hypertension Is this a current diagnosis for this admission?: Yes Plan: Patient has a history of HTN, will continue home medication of [place]. She has remained NORMOtensive. (4) Multiple sclerosis Is this a current diagnosis for this admission?: Yes Plan: The patient reports a history of multiple sclerosis. She is currently not taking any medication, states that she was previously taking an unknown medication but stopped 3 years ago. - Time Time Spent: 30 to 50 Minutes Medications reviewed and adjusted accordingly: Yes Anticipated discharge: Home Within: within 36 hours - Inpatient Certification Based on my medical assessment, after consideration of the patient's comorbidities, presenting symptoms, or acuity I expect that the services needed warrant INPATIENT care.: Yes I certify that my determination is in accordance with my understanding of Medicare's requirements for reasonable and necessary INPATIENT services [42 CFR 412.3e].: Yes Medical Necessity: Risk of Complication if Not Cared For in Hospital - Plan Summary Plan Summary: ULTIMATELY, DISCHARGE HOME
--- NOTE | 2017-08-31 20:35 | PDOC CONSULTATION ---
Consultation Consult Date: 08/31/17 Attending physician:: ROMELIA DICKENS Consult reason:: Chest pain History of Present Illness Admission Date/PCP: 08/31/17 12:24 SERA MCGRAW MD Patient complains of: Chest pain History of Present Illness: WILLAM ANTHONY is a 42 year old female who presented to the emergency department with chest pain. She states that her mid-sternal chest pressure started Saturday 08/26 and has been waxing/waning since then. She was evaluated at [facility] for the same complaint on 08/26 but her symptoms were thought to be related to her recent diagnosis of H. pylori. She was treated with Maalox and viscous lidocaine, then discharged home. The patient became concerned this morning when she woke up with the same chest pain that was now radiating to her left upper arm. The patient states she took Tums, which offered no relief. The patient states her pain is not exacerbated with activity or deep breathing. She states that her pain has been constant since this morning. While in the emergency department she was given full dose aspirin. Patient states she is still experiencing chest pain. This history was reviewed and confirmed. Patient lab work reviewed. Patient describes history of sleep apnea evaluation about a year ago but this was noted to be negative. Given patient's comorbid diagnosis, oropharyngeal exam, obesity, I feel that this could have been a false negative test. PMH includes hypertension, multiple sclerosis (untreated), H pylori Past Medical History Cardiac Medical History: Reports: Hypertension Denies: Congestive Heart Failure, Myocardial Infarction Pulmonary Medical History: Denies: Asthma, Bronchitis, Chronic Obstructive Pulmonary Disease (COPD), Pneumonia, Tuberculosis Neurological Medical History: Denies: Seizures Renal/ Medical History: Denies: End Stage Renal Disease GI Medical History: Reports: Peptic Ulcer Disease, Other - H.Pylori Denies: Cirrhosis, Gastroesophageal Reflux Disease, Hepatitis, Hiatal Hernia Musculoskeltal Medical History: Denies: Arthritis Psychiatric Medical History: Denies: Bipolar Disorder, Depression Hematology: Denies: Anemia, Sickle Cell Disease, Bleeding Tendencies Past Surgical History Past Surgical History: Reports: Cholecystectomy Denies: Amputation, Mastectomy, Pacemaker Social History Information Source: Patient Lives with: Spouse/Significant other Smoking Status: Never Smoker Drugs: None - Advance Directive Resuscitation Status: Full Code Family History Family History: CAD, Other - FATHER - [place] Parental Family History Reviewed: Yes Children Family History Reviewed: Yes Sibling(s) Family History Reviewed.: Yes - Father had myocardial infarction at the young age. Medication/Allergy Home Medications: Amoxicillin 1,000 mg PO Q12 08/31/17 Clarithromycin [Biaxin 500 mg Tablet] 1 tab PO Q12 08/31/17 L.acidoph,Paracasei, B.lactis [Probiotic] 1 each PO DAILY 08/31/17 Losartan Potassium [Cozaar 50 mg Tablet] 50 mg PO DAILY 08/31/17 Melatonin [Melatonin 5 mg Tablet] 10 mg PO QHS 08/31/17 Omeprazole 20 mg PO Q12 08/31/17 Allergies/Adverse Reactions: No Known Allergies Allergy (Verified 06/30/17 18:54) Review of Systems Review of Systems: Please see history of present illness and past medical history as wall. Constitutional: No fever or chills reported. Head : No recent chronic headaches, recent head injury. Eyes: No recent eye pain, diplopia, redness, discharge, acute visual changes. Ears: No recent chronic ear pain, acute hearing loss, ear discharge. Oral cavity: No recent ulcerations, bleeding, oral cavity discomfort. Neck: No recent acute neck pain reported. Hematologic: No recent easy bruising or bleeding or hematologic malignancy reported. Lymphatic: No recent lymphatic malignancy, chronic lymphadenopathy reported yet Cardiovascular system review: See history of present illness. Respiratory system review: No recent chronic cough, hemoptysis, blood clots in the lungs reported. Mild Shortness of breath on exertion Gastrointestinal system review: Negative for any recent acute or chronic abdominal pain, hematemesis, melena, recent change in bowel habits. Genitourinary system review: No recent acute or chronic hematuria, flank pain, UTI etc. reported. Skin system review: Negative for any recent abnormal bruising, no rash, no pruritus reported. Neurologic: No prior history of strokes, mini strokes, seizure disorder. Psychologic: No history of major psychosis or major depression reported. Musculoskeletal: Minor aches and pains reported. No acute joint swelling reported. Endocrine: No recent polyuria, polydipsia, recent heat or cold intolerance. Physical Exam Vital Signs: Temp Pulse Resp BP Pulse Ox 98.6 F 116 H 16 104/50 L 98 08/31/17 16:04 08/31/17 18:34 08/31/17 16:04 08/31/17 16:04 08/31/17 16:04 Intake & Output 08/30/17 08/31/17 09/01/17 06:59 06:59 06:59 Weight 107.4 kg Exam: GENERAL: well-nourished and in no acute distress. Alert and oriented x3 HEAD: Atraumatic, normocephalic. EYES: Pupils equal round and reactive to light, extraocular movements intact, sclera anicteric, conjunctiva are normal. ENT: TMs normal, nares patent, oropharynx clear without exudates. Moist mucous membranes. No oral ulcerations or bleeding gums noted NECK: supple without lymphadenopathy. Trachea is central. No cervical or axillary lymphadenopathy noted. Carotids are 2+, JVD WNL LUNGS: Respiration seems nonlabored, no significant accessory muscle action noted. Breath sounds clear to auscultation bilaterally and equal noted. No wheezes rales or rhonchi noted. No significant dullness noted on percussion. CHEST: Palpation of the chest wall shows no significant chest wall tenderness. No other significant abnormalities noted. 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 ABDOMEN: Soft, no significant tenderness appreciated, normoactive bowel sounds. No guarding, no rebound. No rigidity noted . No masses appreciated. EXTREMITIES: Pedal pulses are 1-2+, no calf tenderness noted. No clubbing or cyanosis.trace to 1+ pedal edema noted NEUROLOGICAL: Focused neurological exam showed no significant neurologic deficit. Normal speech, no focal weakness appreciated. PSYCH: Normal mood, normal affect. Judgment and insight within normal limits. SKIN: No significant ecchymosis, rash, ulcerations or signs of pruritus noted. MUSCULOSKELETAL EXAM: No significant joint swelling noted. Results Laboratory Results: 08/31/17 16:30 Troponin I < 0.012 EKG Comments: Sinus rhythm, no acute ST-T wave changes noted Impressions: Chest X-Ray 08/31/17 11:22 IMPRESSION: NO ACUTE RADIOGRAPHIC FINDING IN THE CHEST. Assessment & Plan - Diagnosis (1) Chest pain Qualifiers: Chest pain type: unspecified Qualified Code(s): R07.9 - Chest pain, unspecified Is this a current diagnosis for this admission?: Yes (2) Hypertension Qualifiers: Hypertension type: essential hypertension Qualified Code(s): I10 - Essential (primary) hypertension Is this a current diagnosis for this admission?: Yes (3) Obesity Qualifiers: Obesity type: unspecified obesity type Serious obesity comorbidity presence : unspecified whether serious comorbidity present Is this a current diagnosis for this admission?: Yes (4) Sleep disorder Is this a current diagnosis for this admission?: Yes (5) Helicobacter pylori (H. pylori) Is this a current diagnosis for this admission?: Yes - Notes Notes: Chest pain: Patient has some typical and atypical features of chest pain. Cardiac enzymes so far has been negative. Electrocardiogram did not show any definitive ST segment changes. Multiple differential diagnoses exist in this patient. In descending order of probability this includes underlying coronary artery disease, gastroesophageal reflux, musculoskeletal pain, referred pain from elsewhere, anxiety panic disorder etc.Patient has significant cardiac risk factors, which indicates that there is a intermediate probability of chest discomfort coming from underlying CAD. Feel that it would need to be evaluated further. Discussed evaluation to assess this. In this regard risk benefits of nuclear stress test and other alternative processes were discussed in detail. The patient prefers to undergo nuclear stress test. The small risk of radiation , myocardial infarction, , cardiac arrhythmias, respiratory distress etc. were discussed. Patient understood the risks and gave informed consent. Nuclear stress test was therefore scheduled. For risk evaluation, patient is also being scheduled for a 2-D echocardiogram. Patient questions were answered. Blood pressure goal in this patient is 140/90 or less. This was discussed with the patient. Currently blood pressure under reasonable control. Better medication for this patient are SUSAN inhibitor/ARB/beta jenifer etc. discussed side effects of uncontrolled hypertension and also severe hypotension. Obesity : Discussed adverse effect of overweight/obesity on cardiovascular event rate, sleep apnea, diabetes and hypertension et cetera. Patient has been recommended weight loss. Prediabetes: Patient describes a glycohemoglobin of 6.2 performed recently. Patient will benefit from carbohydrate restriction, weight loss, metformin therapy. Treatment of sleep apnea if noted also prevents progression to diabetes. Sleep disorder: This is strongly suspected. Discussed that she might benefit from a repeat study. Helicobacter pylori infection: Continue current therapy. - Time Time Spent: 30 to 50 Minutes - CODE STATUS was discussed, patient remains full code. Surrogate decision-maker unchanged. Multiple medical problems were addressed. More than 50% of the time spent coordinating care, discussing management plans with involved caregivers. Management plans discussed with involved personnels. Medical decision making was of moderate to high complexity , patient's has multiple comorbidities. Medications reviewed and adjusted accordingly: Yes
[2017-08-31 21:44] LABS: CHOLESTEROL 206.47 mg/dL (0-200); TRIGLYCERIDES 156 mg/dL (<150)
[2017-08-31 21:55] LABS: DIRECT LDL 122 mg/dL (<100)
[2017-08-31 21:58] LABS: VLDL CHOLESTEROL 31.2 mg/dL (10-31)
[2017-08-31] MEDS: MAG HYDROX/AL HYDROX/SIMETH SUSP 30 ML UDCUP PO PRN (22:54)
[2017-09-01] MEDS ORDERED: ZOLPIDEM TARTRATE 5 MG TABLET ONE (00:09)
[2017-09-01] MEDS: ZOLPIDEM TARTRATE 5 MG TABLET PO PRN ×2 (00:20→21:09)
[2017-09-01 05:23] LABS: ANION GAP 10 (5-19); BLOOD UREA NITROGEN 14 mg/dL (7-20); CALCIUM 9.1 mg/dL (8.4-10.2); CARBON DIOXIDE 23 mmol/L (22-30); CHLORIDE 108 mmol/L (98-107); CHOLESTEROL 192.88 mg/dL (0-200); GLUCOSE 109 mg/dL (75-110); PHOSPHORUS 4.1 mg/dL (2.5-4.5); POTASSIUM 4.2 mmol/L (3.6-5.0); SODIUM 140.6 mmol/L (137-145); TRIGLYCERIDES 142 mg/dL (<150)
[2017-09-01 05:29] LABS: ABSOLUTE BASOPHILS # (AUTO) 0.1 10^3/uL (0.0-0.2); ABSOLUTE EOSINOPHILS # (AUTO) 0.2 10^3/uL (0.0-0.6); ABSOLUTE LYMPHOCYTES (AUTO) 3.5 10^3/uL (0.5-4.7); ABSOLUTE MONOCYTES (AUTO) 0.7 10^3/uL (0.1-1.4); BASOPHILS % (AUTO) 0.6 % (0-2); EOSINOPHILS % (AUTO) 1.7 % (0-6); HEMATOCRIT 42.3 % (36.0-47.0); HEMOGLOBIN 14.4 g/dL (12.0-15.5); LYMPHOCYTES % (AUTO) 33.8 % (13-45); MEAN CORPUSCULAR HEMOGLOBIN 30.1 pg (27.0-33.4); MEAN CORPUSCULAR HGB CONC 34.1 g/dL (32.0-36.0); MEAN CORPUSCULAR VOLUME 88 fl (80-97); MONOCYTES % (AUTO) 6.8 % (3-13); PLATELET COUNT 239 10^3/uL (150-450); RED BLOOD COUNT 4.79 10^6/uL (3.72-5.28); RED CELL DISTRIBUTION WIDTH 13.1 % (11.5-14.0); SEGMENTED NEUTROPHILS % (AUTO) 57.1 % (42-78); TOTAL CELLS COUNTED % (AUTO) 100 %; WHITE BLOOD COUNT 10.5 10^3/uL (4.0-10.5)
[2017-09-01 05:35] LABS: DIRECT LDL 111 mg/dL (<100)
[2017-09-01] MEDS ORDERED: KETOROLAC TROMETHAMINE INJ/PF 30 MG/1 ML SDV IV PRN ×2 (09:01→16:43)
[2017-09-01] MEDS ORDERED: ONDANSETRON ODT 4 MG TAB (6 TAB/ER DISP) PO PRN (09:01)
[2017-09-01] MEDS ORDERED: PANTOPRAZOLE SODIUM 40 MG VIAL IV SCH (10:00)
[2017-09-01] MEDS ORDERED: CLARITHROMYCIN 500 MG TABLET PO ONE (10:30)
[2017-09-01] MEDS ORDERED: TAMSULOSIN HCL 0.4 MG CAP.SR.24H PO ONE (11:00)
[2017-09-01] MEDS ORDERED: NORMAL SALINE 1000 ML 1,000 ML IV ONE (11:00)
[2017-09-01] MEDS: ONDANSETRON 4 MG TAB.RAPDIS PO PRN (11:19)
[2017-09-01] MEDS: METRONIDAZOLE 500 MG TABLET PO SCH ×2 (12:05→21:10)
[2017-09-01] MEDS: ASPIRIN 81 MG TABLET, CHEWABLE PO SCH (12:07)
[2017-09-01] MEDS: AMOXICILLIN TRIHYDRATE 500 MG CAPSULE PO SCH ×2 (12:08→21:09)
--- NOTE | 2017-09-01 13:20 | RADIOLOGY REPORT (SQ) ---
EXAM DESCRIPTION: CT CHEST WITHOUT COMPLETED DATE/TIME: 09/01/2017 11:35 am REASON FOR STUDY: chest pain R07.9 CHEST PAIN, UNSPECIFIED R07.1 CHEST PAIN ON BREATHING COMPARISON: Chest x-ray dated 08/31/2017. TECHNIQUE: CT scan performed of the chest without intravenous contrast. Images reviewed with lung, soft tissue and bone windows. Reconstructed coronal and sagittal MPR images reviewed. All images st ored on PACS. All CT scanners at this facility use dose modulation, iterative reconstruction, and/or weight based d osing when appropriate to reduce radiation dose to as low as reasonably achievable (ALARA). [facility]: Dose Right [facility]: CareDose [facility]: Dose Right [facility]: Teradose 4D [facility]: [employer] Technologies RADIATION DOSE: CT Rad equipment meets quality standard of care and radiation dose reduction techniq ues were employed. CTDIvol: 17.7 mGy. DLP: 690 mGy-cm. mGy. LIMITATIONS: No technical limitations. FINDINGS: LUNGS AND PLEURA: No masses, infiltrates, pneumothorax. No pleural effusions, calcificati ons. HILAR AND MEDIASTINAL STRUCTURES: No identified masses or abnormal nodes. No obvious aneurysm. HEART AND VASCULAR STRUCTURES: No aneurysm. No pericardial effusion. UPPER ABDOMEN: No significant findings. Limited exam. THYROID AND OTHER SOFT TISSUES: Heterogenous nodular appearance of the left lobe with faint calcifica tions, previous evaluated in the past with ultrasound (12/31/2011). No adenopathy. BONES: No significant finding. HARDWARE: None in the chest. OTHER: No other significant findings. IMPRESSION: NO SIGNIFICANT FINDING ON NON-CONTRASTED CHEST CT. TECHNICAL DOCUMENTATION: JOB ID: [id number] Quality ID # [id number]: Final reports with documentation of one or more dose reduction techniques (e.g., Au tomated exposure control, adjustment of the mA and/or kV according to patient size, use of iterative reconstruction technique) 2010 [employer]- All Rights Reserved
--- NOTE | 2017-09-01 13:24 | EKG REPORT ---
SEVERITY:- NORMAL ECG - SINUS RHYTHM : Confirmed by: Jose Hsieh MD 01-Sep-2017 13:24:01
[2017-09-01] MEDS: CLARITHROMYCIN 500 MG TABLET PO SCH (17:23)
[2017-09-01] MEDS: MAG HYDROX/AL HYDROX/SIMETH SUSP 30 ML UDCUP PO PRN (17:24)
[2017-09-01] MEDS ORDERED: TAMSULOSIN HCL 0.4 MG CAP.SR.24H PO SCH (18:00)
--- NOTE | 2017-09-01 19:00 | PDOC PROGRESS REPORT ---
Subjective Progress Note for:: 09/01/17 Subjective:: Patient continues to have intermittent chest pain. In fact her nuclear stress test was canceled this morning as she continued to have chest pain. Patient denying any PND, orthopnea. Patient denied any sustained palpitations, dizziness, syncope, near syncope. Patient denying any fever chills. Patient denying any other significant discomfort. Twelve-lead EKG obtained showed sinus rhythm, no acute ST-T wave changes noted. Patient is maintaining sinus rhythm. Review of systems: Rest review of systems negative. Medications: Medications have been reviewed. Reason For Visit: CHEST PAIN (UNSPECIFIED} Physical Exam Vital Signs: Temp Pulse Resp BP Pulse Ox 99.0 F 76 16 139/66 H 99 09/01/17 07:25 09/01/17 07:25 09/01/17 07:25 09/01/17 07:25 09/01/17 07:25 Intake & Output 08/31/17 09/01/17 09/02/17 06:59 06:59 06:59 Intake Total 240 Output Total 400 Balance -160 Weight 107.4 kg 107.4 kg Exam: GENERAL: well-nourished and in no acute distress. Alert and oriented x3 HEAD: Atraumatic, normocephalic. EYES: Pupils equal round and reactive to light, extraocular movements intact, sclera anicteric, conjunctiva are normal. ENT: TMs normal, nares patent, oropharynx clear without exudates. Moist mucous membranes. No oral ulcerations or bleeding gums noted NECK: supple without lymphadenopathy. Trachea is central. No cervical or axillary lymphadenopathy noted. Carotids are 2+, JVD WNL LUNGS: Respiration seems nonlabored, no significant accessory muscle action noted. Breath sounds clear to auscultation bilaterally and equal noted. No wheezes rales or rhonchi noted. No significant dullness noted on percussion. CHEST: Palpation of the chest wall shows no significant chest wall tenderness. No other significant abnormalities noted. 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 ABDOMEN: Soft, no significant tenderness appreciated, normoactive bowel sounds. No guarding, no rebound. No rigidity noted . No masses appreciated. EXTREMITIES: Pedal pulses are 1-2+, no calf tenderness noted. No clubbing or cyanosis.trace to 1+ pedal edema noted NEUROLOGICAL: Focused neurological exam showed no significant neurologic deficit. Normal speech, no focal weakness appreciated. PSYCH: Normal mood, normal affect. Judgment and insight within normal limits. SKIN: No significant ecchymosis, rash, ulcerations or signs of pruritus noted. MUSCULOSKELETAL EXAM: No significant joint swelling noted. Results Laboratory Results: 09/01/17 04:51 09/01/17 04:51 08/31/17 09/01/17 09/01/17 21:10 04:51 04:51 WBC 10.5 RBC 4.79 Hgb 14.4 Hct 42.3 MCV 88 MCH 30.1 MCHC 34.1 RDW 13.1 Plt Count 239 Seg Neutrophils % 57.1 Lymphocytes % 33.8 Monocytes % 6.8 Eosinophils % 1.7 Basophils % 0.6 Absolute Neutrophils 6.0 Absolute Lymphocytes 3.5 Absolute Monocytes 0.7 Absolute Eosinophils 0.2 Absolute Basophils 0.1 Sodium 140.6 Potassium 4.2 Chloride 108 H Carbon Dioxide 23 Anion Gap 10 BUN 14 Creatinine 0.71 Est GFR ( Amer) > 60 Est GFR (Non-Af Amer) > 60 Glucose 109 Calcium 9.1 Phosphorus 4.1 Triglycerides 156 H 142 Cholesterol 206.47 H 192.88 LDL Cholesterol Direct 122 H 111 H VLDL Cholesterol 31.2 H 28.0 HDL Cholesterol 59 48 08/31/17 08/31/17 16:30 21:10 Troponin I < 0.012 < 0.012 EKG Comments: Sinus rhythm. Acute ST-T wave changes noted. Telemetry shows no significant arrhythmias. Impressions: Chest X-Ray 08/31/17 11:22 IMPRESSION: NO ACUTE RADIOGRAPHIC FINDING IN THE CHEST. Chest CT 09/01/17 09:19 IMPRESSION: NO SIGNIFICANT FINDING ON NON-CONTRASTED CHEST CT. Assessment & Plan - Diagnosis (1) Chest pain Qualifiers: Chest pain type: unspecified Qualified Code(s): R07.9 - Chest pain, unspecified Is this a current diagnosis for this admission?: Yes (2) Hypertension Qualifiers: Hypertension type: essential hypertension Qualified Code(s): I10 - Essential (primary) hypertension Is this a current diagnosis for this admission?: Yes (3) Obesity Qualifiers: Obesity type: unspecified obesity type Serious obesity comorbidity presence : unspecified whether serious comorbidity present Is this a current diagnosis for this admission?: Yes (4) Sleep disorder Is this a current diagnosis for this admission?: Yes (5) Helicobacter pylori (H. pylori) Is this a current diagnosis for this admission?: Yes (6) Generalized anxiety disorder with panic attacks Is this a current diagnosis for this admission?: Yes (7) HLD (hyperlipidemia) Qualifiers: Hyperlipidemia type: unspecified Qualified Code(s): E78.5 - Hyperlipidemia , unspecified Is this a current diagnosis for this admission?: Yes - Notes Notes: Chest pain: Patient was scheduled to have nuclear stress test but this morning she had considerable chest pain and therefore nuclear stress test was canceled. Subsequently EKG came back negative. A CT scan was also negative although it was without contrast. Patient being rescheduled for stress test tomorrow. Patient had a echo ordered which she is not yet performed. Hypertension: Blood pressure under reasonable control. Sleep disorder: Patient will benefit from a sleep study and this can be considered as an outpatient. H pylori infection: Recommend double dose proton pump inhibitor. Hnxiety panic disorder : Patient may have possible underlying anxiety panic disorder. Further plans after review of 2D echo and nuclear stress test results. HLD: start statins - Time Time with patient: Greater than 35 minutes - Pt seen multiple tomes. Ordered CT chest. CODE STATUS was discussed, patient remains full code. Surrogate decision -maker unchanged. Multiple medical problems were addressed. More than 50% of the time spent coordinating care, discussing management plans with involved caregivers. Management plans discussed with involved personnels. Medical decision making was of moderate to high complexity, patient's has multiple comorbidities. Medications reviewed and adjusted accordingly: Yes
[2017-09-01] MEDS: PANTOPRAZOLE SODIUM 40 MG VIAL IV SCH (21:10)
[2017-09-02 07:54] LABS: ABSOLUTE EOSINOPHILS # (AUTO) 0.1 10^3/uL (0.0-0.6); ABSOLUTE LYMPHOCYTES (AUTO) 3.1 10^3/uL (0.5-4.7); BASOPHILS % (AUTO) 0.4 % (0-2); TOTAL CELLS COUNTED % (AUTO) 100 %
[2017-09-02 08:04] LABS: ANION GAP 14 (5-19); BLOOD UREA NITROGEN 13 mg/dL (7-20); CALCIUM 9.4 mg/dL (8.4-10.2); CARBON DIOXIDE 20 mmol/L (22-30); CHLORIDE 106 mmol/L (98-107); GLUCOSE 160 mg/dL (75-110); PHOSPHORUS 3.5 mg/dL (2.5-4.5); POTASSIUM 4.5 mmol/L (3.6-5.0); SODIUM 140.1 mmol/L (137-145)
[2017-09-02 08:06] LABS: ABSOLUTE MONOCYTES (AUTO) 0.6 10^3/uL (0.1-1.4); ABSOLUTE NEUT (AUTO) 7.4 10^3/uL (1.7-8.2); EOSINOPHILS % (AUTO) 1.2 % (0-6); HEMATOCRIT 41.7 % (36.0-47.0); HEMOGLOBIN 14.1 g/dL (12.0-15.5); LYMPHOCYTES % (AUTO) 27.6 % (13-45); MEAN CORPUSCULAR HGB CONC 33.7 g/dL (32.0-36.0); MEAN CORPUSCULAR VOLUME 89 fl (80-97); MONOCYTES % (AUTO) 5.2 % (3-13); PLATELET COUNT 345 10^3/uL (150-450); RED BLOOD COUNT 4.69 10^6/uL (3.72-5.28); RED CELL DISTRIBUTION WIDTH 12.9 % (11.5-14.0); SEGMENTED NEUTROPHILS % (AUTO) 65.6 % (42-78); WHITE BLOOD COUNT 11.3 10^3/uL (4.0-10.5)
--- NOTE | 2017-09-02 11:52 | PDOC PROGRESS REPORT ---
Subjective Progress Note for:: 09/02/17 Subjective:: WILLAM ANTHONY is a 42 year old female who presented to the emergency department with chest pain. She states that her mid-sternal chest pressure started Saturday 08/26 and has been waxing/waning since then. She was evaluated at [facility] for the same complaint on 08/26 but her symptoms were thought to be related to her recent diagnosis of H. pylori. PMH includes hypertension, multiple sclerosis (untreated), nephrolithiasis, H pylori. Patient seen this morning on rounds, she is awake, alert, oriented, and participatory in care. The patient is complaining of mild nausea and a mild. She denies chest pain this morning. Will administer SL Zofran for nausea and toradol iv prior to stress test. The patient has no other complaints at this time. Reason For Visit: CHEST PAIN (UNSPECIFIED} Physical Exam Vital Signs: Temp Pulse Resp BP Pulse Ox 97.8 F 76 16 135/75 H 98 09/02/17 07:42 09/02/17 07:42 09/02/17 07:42 09/02/17 07:42 09/02/17 07:42 Intake & Output 09/01/17 09/02/17 09/03/17 06:59 06:59 06:59 Intake Total 240 3493 Output Total 400 1900 Balance -160 1593 Weight 107.4 kg 107.4 kg General appearance: PRESENT: no acute distress, well-developed, well-nourished Eye exam: PRESENT: conjunctiva pink, EOMI, PERRLA. ABSENT: scleral icterus Mouth exam: PRESENT: moist Neck exam: PRESENT: full ROM Respiratory exam: PRESENT: clear to auscultation melonie Cardiovascular exam: PRESENT: RRR, +S1, +S2 Pulses: PRESENT: normal radial pulses, +1 pedal pulses bilateral GI/Abdominal exam: PRESENT: normal bowel sounds Rectal exam: PRESENT: deferred Extremities exam: PRESENT: full ROM Musculoskeletal exam: PRESENT: ambulatory Neurological exam: PRESENT: alert, awake, oriented to person, oriented to place , oriented to time, oriented to situation Psychiatric exam: PRESENT: appropriate affect Results Laboratory Results: 09/02/17 07:18 09/02/17 07:18 09/02/17 09/02/17 07:18 07:18 WBC 11.3 H RBC 4.69 Hgb 14.1 Hct 41.7 MCV 89 MCH 30.0 MCHC 33.7 RDW 12.9 Plt Count 345 Seg Neutrophils % 65.6 Lymphocytes % 27.6 Monocytes % 5.2 Eosinophils % 1.2 Basophils % 0.4 Absolute Neutrophils 7.4 Absolute Lymphocytes 3.1 Absolute Monocytes 0.6 Absolute Eosinophils 0.1 Absolute Basophils 0.0 Sodium 140.1 Potassium 4.5 Chloride 106 Carbon Dioxide 20 L Anion Gap 14 BUN 13 Creatinine 0.70 Est GFR ( Amer) > 60 Est GFR (Non-Af Amer) > 60 Glucose 160 H Calcium 9.4 Phosphorus 3.5 Magnesium 2.3 08/31/17 08/31/17 16:30 21:10 Troponin I < 0.012 < 0.012 Impressions: Chest X-Ray 08/31/17 11:22 IMPRESSION: NO ACUTE RADIOGRAPHIC FINDING IN THE CHEST. Chest CT 09/01/17 09:19 IMPRESSION: NO SIGNIFICANT FINDING ON NON-CONTRASTED CHEST CT. Status: Imported from PACS Assessment & Plan - Diagnosis (1) Chest pain Qualifiers: Chest pain type: unspecified Qualified Code(s): R07.9 - Chest pain, unspecified Is this a current diagnosis for this admission?: Yes Plan: Sternal chest pressure. Patient states it started last Saturday 08/26. She came to the emergency department that day for her chest pain, but her symptoms were believed to be related to her recent diagnosis of H. pylori. She was discharged home after receiving a GI cocktail of Maalox and viscous lidocaine. The patient states that her chest pain persisted throughout the day and into Tuesday and Tuesday. She reports that her chest pain returned again 08/31. Her EKG shows normal sinus rhythm with no evidence of acute ischemia or infarct. Troponin < 0.27 x 2, no longer need to trend. D-dimer negative. CT chest to r/o PE was benign, additionally there was no calcification of coronary arteries seen on CT. Cardiology has been consulted. Routine echocardiogram and stress test have been ordered. Morphine and SL nitro as needed for chest pain. At this time, I don't believe that her symptoms are cardiac in nature - given her normal EKG, normal cardiac enzymes, and atypical symptoms. If results of Echo, blood work, and stress test are benign, patient will likely be discharged home and instructed to follow up with her PMD and double backer. (2) Helicobacter pylori (H. pylori) Is this a current diagnosis for this admission?: Yes Plan: Patient states she was recently diagnosed with H pylori but never started her antibiotic regimen. Due to the patient's consistent complaint of chest pain, will initiate the triple antibiotic therapy (amoxicillin, flagyl, clarythromycin ) and double her dose of PPI. (3) Hypertension Qualifiers: Hypertension type: essential hypertension Qualified Code(s): I10 - Essential (primary) hypertension Is this a current diagnosis for this admission?: Yes Plan: Patient has a history of HTN, will continue home medication of losartaan. She has remained NORMOtensive. (4) Multiple sclerosis Is this a current diagnosis for this admission?: Yes Plan: The patient reports a history of multiple sclerosis. She is currently not taking any medication, states that she was previously taking an unknown medication but stopped 3 years ago. (5) Nausea Is this a current diagnosis for this admission?: Yes Plan: the patient started complaining of nausea this morning, ordered PRN Zofran. - Time Time Spent with patient: 15-24 minutes Medications reviewed and adjusted accordingly: Yes Anticipated discharge: Home Within: within 48 hours Disposition: plan is to discharge the patient home - Inpatient Certification Based on my medical assessment, after consideration of the patient's comorbidities, presenting symptoms, or acuity I expect that the services needed warrant INPATIENT care.: Yes I certify that my determination is in accordance with my understanding of Medicare's requirements for reasonable and necessary INPATIENT services [42 CFR 412.3e].: Yes Medical Necessity: Risk of Complication if Not Cared For in Hospital - Plan Summary Plan Summary: ultimately, the plan is to discharge the patient home
[2017-09-02] MEDS ORDERED: SERTRALINE HCL 50 MG TABLET PO ONE (12:00)
--- NOTE | 2017-09-02 12:09 | XCELERA REPORT ---
[address] [address] Transthoracic Echocardiogram Report Name: WILLAM ANTHONY Age: 42 yrs Gender: Female : 1975 Patient Status: Inpatient Patient Location: [address] [place] [address] Study Date: 09/02/2017 10:52 AM Height: 63 in Weight: 252 lb BSA: 2.1 m2 Procedure: A complete two-dimensional transthoracic echocardiogram was performed (2D, M-mode, spectral and color flow Doppler). The study was technically adequate with some images being suboptimal in quality. Reason For Study: Chest Pain Ordering Physician: EVELIA FELIZ Performed By: Sherry Mcgill Interpretation Summary The left ventricular ejection fraction is within normal limits. Doppler measurements suggest impaired left ventricular relaxation, which is associated with grade I/IV or mild diastolic dysfunction There is normal left ventricular wall thickness. The left ventricle is grossly normal size. Wall motion cannot be accurately commented on, but no definite regional wall motion abnormalities noted. The right ventricular systolic function is normal. The right atrium is normal in size The left atrial size is normal. There is a trace amount of mitral regurgitation There is no mitral valve stenosis. There is no aortic valve stenosis No aortic regurgitation is present. No tricuspid regurgitation. There is no tricuspid stenosis. The aortic root is not well visualized. The inferior vena cava appeared normal and decreased > 50% with respiration (RAP 5-10 mmHg) There is no pericardial effusion. MMode/2D Measurements & Calculations RVDd: 2.7 cm LVIDd: 4.6 cm FS: 35.7 % Ao root diam: 2.6 cm IVSd: 0.84 cm LVIDs: 3.0 cm EDV(Teich): 99.8 ml LVPWd: 0.78 cm ESV(Teich): 34.7 ml Ao root area: 5.2 cm2 EF(Teich): 65.3 % LA dimension: 3.4 cm Doppler Measurements & Calculations MV E max coni: MV P1/2t max coni: Ao V2 max: LV V1 max P.7 cm/sec 103.2 cm/sec 160.7 cm/sec 5.1 mmHg MV A max coni: MV P1/2t: 78.1 msec Ao max PG: LV V1 max: 77.0 cm/sec 10.3 mmHg 113.0 cm/sec MV E/A: 1.3 MVA(P1/2t): 2.8 cm2 MV dec slope: 386.9 cm/sec2 PA V2 max: 107.6 cm/sec PA max P.6 mmHg Left Ventricle The left ventricle is grossly normal size. There is normal left ventricular wall thickness. The left ventricular ejection fraction is within normal limits. Doppler measurements suggest impaired left ventricular relaxation, which is associated with grade I/IV or mild diastolic dysfunction. Wall motion cannot be accurately commented on, but no definite regional wall motion abnormalities noted. Right Ventricle The right ventricle is grossly normal size. There is normal right ventricular wall thickness. The right ventricular systolic function is normal. Atria The right atrium is normal in size. The left atrial size is normal. Interarterial septum not well visualized and not well dopplered. Cannot comment on ASD/PFO presence. Mitral Valve The mitral valve is grossly normal. There is no mitral valve stenosis. There is a trace amount of mitral regurgitation. Aortic Valve The aortic valve is grossly normal. There is no aortic valve stenosis. No aortic regurgitation is present. Tricuspid Valve The tricuspid valve is not well visualized, but is grossly normal. There is no tricuspid stenosis. No tricuspid regurgitation. Pulmonic Valve The pulmonic valve is not well seen, but is grossly normal. Great Vessels The aortic root is not well visualized. The inferior vena cava appeared normal and decreased > 50% with respiration (RAP 5-10 mmHg). Effusions There is no pericardial effusion. : EVELIA FELIZ > Mango Day
--- NOTE | 2017-09-02 13:22 | DRAGON STRESS TEST REPORT ---
INTRAVENOUS LEXISCAN CARDIOLITE STRESS TEST USING SINGLE PHOTON EMMISION COMPUTERIZED TOMOGRAPHIC. DATE OF PROCEDURE: September 02, 2017, INDICATION : Chest pain CARDIAC RISK FACTORS: Hypertension RESTING EKG: Sinus rhythm without any baseline ST-T wave changes STRESS EKG: No significant changes noted with LexiScan bolus. Nonspecific T- wave changes were noted at 1 minute post Lexiscan infusion but these normalized quickly. REASON FOR TERMINATION: Protocol. PROCEDURE REPORT: Baseline heart rate 83 beats per minute with blood pressure of 134/70. Patient had no significant complaints. Heart rate at 2 minutes post bolus 111 with a blood pressure of 114/74. 3 minutes post bolus heart rate 85 with blood pressure of 125/65. No significant EKG changes were noted. Patient had no significant complaints during the procedure or postprocedure. Patient injected with Aminophyllin 75 mg at 3 minutes or later after Lexiscan bolus. CONCLUSIONS: Normal EKG and hemodynamic response to IV LexiScan. NUCLEAR DATA: At rest the patient was given 15.77 millicuries of technetium 99 sestamibi injected intravenously. As per protocol rest gated SPECT images were obtained. On day of stress test, the patient was given intravenous LexiScan at a dose of 0.4 mg in 5 mL intravenously, followed by flush with normal saline. Subsequently the stress dose of 49.1 millicuries of technetium 99 sestamibi was injected intravenously. As per protocol stress gated images were obtained. NUCLEAR INTERPRETATION: Both raw and processed data were used for interpretation. Visual, qualitative, computer-generated quantitative data was used. There was good myocardial uptake of technetium compound. Motion artifact and soft tissue attenuations were noted. Increased visceral uptake was noted, significant breast attenuation artifact was noted. No definitive areas of transient perfusion defect noted, there was decreased uptake noted in the stress images in the mid anterior wall. This is felt to be related to differences in breast attenuation artifact rather than true defect. There were no corresponding wall motion abnormalities noted on gated imaging. No definitive areas of fixed perfusion defect or scars noted. EKG gated imaging showed LV EF at 52 %, rest and stress gated EF similar visually. T. I D. ratio was 1.29. Lung heart ratio noted to be within normal limits 0.28. No significant extracardiac and abnormal radiotracer activities were noted. RV free wall uptake was noted to be WNL. IMPRESSION: Also refer to comments under nuclear interpretation. Also test results needs to be interpreted in the context of pretest probability. Overall study quality was somewhat suboptimal. 1. No definitive areas of transient perfusion defect noted. 2. There is no definitive scintigraphic evidence of myocardial infarction/scar. 3. EKG gated imaging shows left ventricular ejection fraction of approx. 52 %. 4. Clinical correlation requested as occasionally single vessel disease or balanced ischemia could be missed. In approximately 10% of the cases Lexiscan may not cause adequate vasodilatory stress. RECOMMENDATIONS: Aggressive risk factor modification and medical management. Further evaluation may be needed if continued symptoms or other high risk indicators are noted on clinical evaluation. Close cardiology follow-up is also recommended. Clinical correlation with echocardiogram derived ejection fraction. Inability to exercise by itself can lead to increased cardiovascular event risks. Consider cardiology consultation and or follow-up if clinically indicated. I am available for cardiology evaluation and consultation if requested by the remotely piloted vehicle controller, unless patient already has a residential roofer. NICK
[2017-09-02] MEDS: METRONIDAZOLE 500 MG TABLET PO SCH (13:41)
[2017-09-02] MEDS: AMOXICILLIN TRIHYDRATE 500 MG CAPSULE PO SCH (13:42)
[2017-09-02] MEDS: CLARITHROMYCIN 500 MG TABLET PO SCH (13:42)
[2017-09-02] MEDS: ASPIRIN 81 MG TABLET, CHEWABLE PO SCH (13:43)
[2017-09-02] MEDS: PANTOPRAZOLE SODIUM 40 MG VIAL IV SCH (13:45)
[2017-09-02] MEDS: ONDANSETRON 4 MG TAB.RAPDIS PO PRN (13:47)
[2017-09-02] MEDS ORDERED: REGADENOSON INJ 0.4 MG/5 ML DISP.SYRIN IV ONE (14:01)
[2017-09-02] MEDS ORDERED: AMINOPHYLLINE INJ/PF 250 MG/10 ML SDV IV ONE (14:01)
[2017-09-02 15:37] VITALS: BP 116/88
--- NOTE | 2017-09-02 16:13 | PDOC DISCHARGE SUMMARY ---
General - Admit/Disc Date/PCP Admission Date/Primary Care Provider: 08/31/17 12:24 SERA MCGRAW MD Discharge Date: 09/02/17 - Discharge Diagnosis (1) Chest pain Is this a current diagnosis for this admission?: Yes Summary: Patient presented with substernal chest pressure that radiated to her left arm. When the patient presented to the emergency department, she was given 325mg ASA but experienced no relief. EKG shows normal sinus rhythm with no evidence of acute ischemia or infarct. Troponin < 0.27 x 3. D-dimer negative. Cardiology was consulted. Stress test showed nonspecific T-wave changes during the stress EKG, but they quickly normalized. left ventricular ejection fraction 52%. No evidence of myocardial infarction or ischemia. Echocardiogram shows grade I/IV or mild diastolic dysfunction. The chest CT without contrast was benign. I do not believe that her symptoms are cardiac in nature - given her normal EKG, normal cardiac enzymes, past medical history of H Pylori, and atypical symptoms. After consulting with Dr. Day, we decided that the patient was safe to be discharged home with close cardiology follow up. The patient needs a sleep study to evaluate for OUMAR. Additionally, she was started on ASA 81mg PO daily, and atorvastatin 10mg QHS. (2) Helicobacter pylori (H. pylori) Is this a current diagnosis for this admission?: Yes Summary: Patient states that she was recently diagnosed with H pylori. This was an incidental finding by her gerontologist. She was being worked up for bowel incontinence, thought to be related to her MS, when it was discovered that she was +H pylori. Her doctor originally instructed her not to take the antibiotic regimen for her H pylori, as she was taking antibiotics at the time for sinus infection. While in the hospital she was restarted on her amoxicillin, Flagyl, clarithromycin and a double dose PPI. The patient was instructed to continue taking her antibiotic regimen post-discharge until September 10 for a total of 14 days. Additionally, she will need to follow-up with her sample driller when she completes her antibiotic regimen (3) Hypertension Is this a current diagnosis for this admission?: Yes Summary: The patient has history of hypertension we will continue her home medication of losartan. She has remained normotensive while inpatient. (4) Multiple sclerosis Is this a current diagnosis for this admission?: Yes Summary: The patient reports a history of multiple sclerosis. She is currently not taking any medication, states that she previously was taking an unknown medication but stopped that 3 years ago. Patient is currently not seeing anyone who is following her for her multiple sclerosis. The patient does state that she recently had a colonoscopy for bowel incontinence thought to be related to her MS. (5) Nausea Is this a current diagnosis for this admission?: Yes Summary: The patient has been complaining of nausea, thought to be related to her new antibiotic regimen for H pylori. She was started on sublingual Zofran. Symptoms controlled. Patient had no episodes of vomiting while in the hospital. - Additional Information Resuscitation Status: Full Code Discharge Diet: Cardiac Discharge Activity: Activity As Tolerated Prescriptions: Amoxicillin Trihydrate [Amoxil 500 mg Capsule] 1,000 mg PO Q12 #14 capsule Aspirin [Aspirin 81 mg Chewable Tablet] 81 mg PO DAILY #30 tab.chew Atorvastatin Calcium [Lipitor 10 mg Tablet] 10 mg PO QHS #30 tablet Clarithromycin [Biaxin 500 mg Tablet] 500 mg PO BID #14 tablet Metronidazole [Flagyl 500 mg Tablet] 500 mg PO Q12 #14 tablet Pantoprazole Sodium [Protonix] 40 mg PO BID #16 tablet. Sertraline HCl [Zoloft 50 mg Tablet] 25 mg PO DAILY #30 tablet Tamsulosin HCl [Flomax 0.4 mg Cap.sr] 0.4 mg PO DAILY #30 cap.sr.24h Home Medications: Amoxicillin 1,000 mg PO Q12 08/31/17 Clarithromycin [Biaxin 500 mg Tablet] 1 tab PO Q12 08/31/17 L.acidoph,Paracasei, B.lactis [Probiotic] 1 each PO DAILY 08/31/17 Losartan Potassium [Cozaar 50 mg Tablet] 50 mg PO DAILY 08/31/17 Melatonin [Melatonin 5 mg Tablet] 10 mg PO QHS 08/31/17 Amoxicillin Trihydrate [Amoxil 500 mg Capsule] 1,000 mg PO Q12 #14 capsule 09/02 Aspirin [Aspirin 81 mg Chewable Tablet] 81 mg PO DAILY #30 tab.chew 09/02/17 Atorvastatin Calcium [Lipitor 10 mg Tablet] 10 mg PO QHS #30 tablet 09/02/17 Clarithromycin [Biaxin 500 mg Tablet] 500 mg PO BID #14 tablet 09/02/17 Metronidazole [Flagyl 500 mg Tablet] 500 mg PO Q12 #14 tablet 09/02/17 Pantoprazole Sodium [Protonix] 40 mg PO BID #16 tablet. 09/02/17 Sertraline HCl [Zoloft 50 mg Tablet] 25 mg PO DAILY #30 tablet 09/02/17 Tamsulosin HCl [Flomax 0.4 mg Cap.sr] 0.4 mg PO DAILY #30 cap.sr.24h 09/02/17 History of Present Illness Patient complains of: chest pain History of Present Illness: WILLAM ANTHONY is a 42 year old female who presented to the emergency department with chest pain. She states that her mid-sternal chest pressure started Saturday 08/26 and has been waxing/waning since then. She was evaluated at [facility] ED for the same complaint on 08/26 but her symptoms were thought to be related to her recent diagnosis of H. pylori. She was treated with Maalox and viscous lidocaine, then discharged home. The patient became concerned this morning when she woke up with the same chest pain that was now radiating to her left upper arm. The patient states she took Tums, which offered no relief. The patient states her pain is not exacerbated with activity or deep breathing. She states that her pain has been constant since this morning. While in the emergency department she was given full dose aspirin. Patient states she is still experiencing chest pain. PMH includes hypertension, multiple sclerosis (untreated), H pylori Hospital Course Hospital Course: Once admitted to [facility], the patient was restarted on her antibiotic regimen for H pylori. The patient had a history of kidney stones and was experiencing L flank pain. She was given flomax, IVF, and toradol and her flank pain resolved. The patient is currently being treated for nephrolithiasis by PMD. Additionally cardiology was consulted for her atypical chest pain. CT chest benign. ECHO and stress test were completed and both showed no evidence of acute infarct or ischemia. Patient was deemed safe for discharge home with close follow up. See above for assessment and plan in greater detail. Physical Exam Vital Signs: Temp Pulse Resp BP Pulse Ox 97.8 F 103 H 16 135/75 H 98 09/02/17 07:42 09/02/17 14:00 09/02/17 07:42 09/02/17 07:42 09/02/17 07:42 Intake & Output 09/01/17 09/02/17 09/03/17 06:59 06:59 06:59 Intake Total 240 3493 Output Total 400 1900 Balance -160 1593 Weight 107.4 kg 107.4 kg General appearance: PRESENT: no acute distress Head exam: PRESENT: normocephalic Eye exam: PRESENT: conjunctiva pink Mouth exam: PRESENT: moist Neck exam: PRESENT: full ROM Respiratory exam: PRESENT: clear to auscultation melonie Cardiovascular exam: PRESENT: RRR, +S1, +S2 Pulses: PRESENT: normal radial pulses, +1 pedal pulses bilateral Vascular exam: PRESENT: normal capillary refill GI/Abdominal exam: PRESENT: normal bowel sounds Rectal exam: PRESENT: deferred Extremities exam: PRESENT: full ROM Musculoskeletal exam: PRESENT: ambulatory, full ROM Neurological exam: PRESENT: alert, awake, oriented to person, oriented to place , oriented to time, oriented to situation Psychiatric exam: PRESENT: appropriate affect Results Laboratory Results: 09/02/17 07:18 09/02/17 07:18 09/02/17 09/02/17 07:18 07:18 WBC 11.3 H RBC 4.69 Hgb 14.1 Hct 41.7 MCV 89 MCH 30.0 MCHC 33.7 RDW 12.9 Plt Count 345 Seg Neutrophils % 65.6 Lymphocytes % 27.6 Monocytes % 5.2 Eosinophils % 1.2 Basophils % 0.4 Absolute Neutrophils 7.4 Absolute Lymphocytes 3.1 Absolute Monocytes 0.6 Absolute Eosinophils 0.1 Absolute Basophils 0.0 Sodium 140.1 Potassium 4.5 Chloride 106 Carbon Dioxide 20 L Anion Gap 14 BUN 13 Creatinine 0.70 Est GFR ( Amer) > 60 Est GFR (Non-Af Amer) > 60 Glucose 160 H Calcium 9.4 Phosphorus 3.5 Magnesium 2.3 08/31/17 08/31/17 16:30 21:10 Troponin I < 0.012 < 0.012 Impressions: Chest X-Ray 08/31/17 11:22 IMPRESSION: NO ACUTE RADIOGRAPHIC FINDING IN THE CHEST. Chest CT 09/01/17 09:19 IMPRESSION: NO SIGNIFICANT FINDING ON NON-CONTRASTED CHEST CT. Status: Imported from PACS Qualifiers - * PATEINT BEING DISCHARGED WITH ANY OF THE FOLLOWING DIAGNOSIS?: No Plan Discharge Plan: Discharge home with follow-up in 1 week with cardiology and gastroenterology Time Spent: Greater than 30 Minutes
[2017-09-02] MEDS ORDERED: ATORVASTATIN CALCIUM 40 MG TABLET PO SCH (22:00)
[2017-09-02] MEDS ORDERED: ATORVASTATIN CALCIUM 10 MG TABLET PO SCH (22:00)
[2017-09-03] MEDS ORDERED: SERTRALINE HCL 50 MG TABLET PO SCH (10:00)
--- NOTE | 2017-09-03 15:41 | PDOC PROGRESS REPORT ---
Subjective Progress Note for:: 09/03/17 Subjective:: Patient was seen multiple times. Dictation somehow got missed and is being dictated now. Patient is denying any chest pain. Patient was able to complete nuclear stress test today. Patient denying any PND, orthopnea. Patient denied any sustained palpitations, dizziness, syncope, near syncope. Patient denying any fever chills. Patient denying any other significant discomfort. Twelve-lead EKG obtained showed sinus rhythm, no acute ST-T wave changes noted. Patient is maintaining sinus rhythm. Review of systems: Rest review of systems negative. Medications: Medications have been reviewed. Reason For Visit: CHEST PAIN (UNSPECIFIED} Physical Exam Vital Signs: Temp Pulse Resp BP Pulse Ox 97.8 F 103 H 16 116/88 H 98 09/02/17 15:34 09/02/17 15:34 09/02/17 15:34 09/02/17 15:34 09/02/17 15:34 Intake & Output 09/02/17 09/03/17 09/04/17 06:59 06:59 06:59 Intake Total 3493 Output Total 1900 Balance 1593 Weight 107.4 kg Exam: GENERAL: well-nourished and in no acute distress. Alert and oriented x3 HEAD: Atraumatic, normocephalic. EYES: Pupils equal round and reactive to light, extraocular movements intact, sclera anicteric, conjunctiva are normal. ENT: TMs normal, nares patent, oropharynx clear without exudates. Moist mucous membranes. No oral ulcerations or bleeding gums noted NECK: supple without lymphadenopathy. Trachea is central. No cervical or axillary lymphadenopathy noted. Carotids are 2+, JVD WNL LUNGS: Respiration seems nonlabored, no significant accessory muscle action noted. Breath sounds clear to auscultation bilaterally and equal noted. No wheezes rales or rhonchi noted. No significant dullness noted on percussion. CHEST: Palpation of the chest wall shows no significant chest wall tenderness. No other significant abnormalities noted. HEART: [place] BINGO FLOATER, No PSH, 1/6 TRAVIS aortic area, 1/6 early systolic murmur mitral area, no rubs, no gallops. ABDOMEN: Soft, no significant tenderness appreciated, normoactive bowel sounds. No guarding, no rebound. No rigidity noted . No masses appreciated. EXTREMITIES: Pedal pulses are 1-2+, no calf tenderness noted. No clubbing or cyanosis.trace to 1+ pedal edema noted NEUROLOGICAL: Focused neurological exam showed no significant neurologic deficit. Normal speech, no focal weakness appreciated. PSYCH: Normal mood, normal affect. Judgment and insight within normal limits. SKIN: No significant ecchymosis, rash, ulcerations or signs of pruritus noted. MUSCULOSKELETAL EXAM: No significant joint swelling noted. Results Laboratory Results: 09/02/17 07:18 09/02/17 07:18 08/31/17 08/31/17 16:30 21:10 Troponin I < 0.012 < 0.012 Impressions: Chest X-Ray 08/31/17 11:22 IMPRESSION: NO ACUTE RADIOGRAPHIC FINDING IN THE CHEST. Chest CT 09/01/17 09:19 IMPRESSION: NO SIGNIFICANT FINDING ON NON-CONTRASTED CHEST CT. Assessment & Plan - Diagnosis (1) Chest pain Qualifiers: Chest pain type: unspecified Qualified Code(s): R07.9 - Chest pain, unspecified Is this a current diagnosis for this admission?: Yes (2) Hypertension Qualifiers: Hypertension type: essential hypertension Qualified Code(s): I10 - Essential (primary) hypertension Is this a current diagnosis for this admission?: Yes (3) Obesity Qualifiers: Obesity type: unspecified obesity type Serious obesity comorbidity presence : unspecified whether serious comorbidity present Is this a current diagnosis for this admission?: Yes (4) Sleep disorder Is this a current diagnosis for this admission?: Yes (5) Helicobacter pylori (H. pylori) Is this a current diagnosis for this admission?: Yes (6) Generalized anxiety disorder with panic attacks Is this a current diagnosis for this admission?: Yes (7) HLD (hyperlipidemia) Qualifiers: Hyperlipidemia type: unspecified Qualified Code(s): E78.5 - Hyperlipidemia , unspecified Is this a current diagnosis for this admission?: Yes - Notes Notes: Chest pain: Patient claims chest pain resolved. This was evaluated with a nuclear stress test. Nuclear stress test was negative for any significant areas of ischemia or any significant areas of scar. The nuclear stress test is felt to be relatively low risk. Patient informed that occasionally single- vessel disease and balanced ischemia could be missed. Patient advised aggressive risk factor modification and medical therapy. Patient informed that further evaluation may become necessary if symptoms worsens or there is a development of new symptoms indicative of angina or angina equivalent symptom. Hypertension: Under reasonable control. Obesity: Patient encouraged in weight loss. Sleep disorder: Discussed that she would benefit from a sleep study and treatment of sleep apnea. Helicobacter pylori infection: Continue current therapy. Generalized anxiety disorder: Patient has panic symptoms. Patient was placed on Zoloft therapy. Dyslipidemia: Continue statin therapy. - Time Time with patient: Greater than 35 minutes - Patient was seen multiple times. Total time exceeds 40 minutes. In the morning nuclear stress test procedure, risks benefits, alternatives were discussed. Patient seen during the stress test. Patient also seen after stress test when results were discussed with the patient in detail. Patient's questions were answered. Nuclear stress test results were discussed with the patient. Patient was informed that no definitive evidence of pharmacologic stress-induced ischemia noted. No definite fixed defects were noted. Patient informed that occasionally significant single vessel disease or balanced ischemia could be missed. However based on the current study results, would recommend aggressive risk factor modification and medical therapy. It may also be worthwhile to consider evaluation or empiric management of other causes of chest pain. Should no other cause be found and if persistent in having chest pain, then cardiac catheterization should be considered. Right now, recommendations are for aggressive risk factor modification and medical management. Patient encouraged close cardiology follow-up. She could follow-up with me if she wishes. Medications reviewed and adjusted accordingly: Yes
--- NOTE | 2017-09-03 15:44 | PDOC PROGRESS REPORT ---
Subjective Progress Note for:: 09/02/17 Subjective:: Patient was seen multiple times. Patient was seen yesterday, during a stress test and after stress test. Dictation somehow got missed and is being dictated now. Patient is denying any chest pain. Patient was able to complete nuclear stress test today. Patient denying any PND, orthopnea. Patient denied any sustained palpitations, dizziness, syncope, near syncope. Patient denying any fever chills. Patient denying any other significant discomfort. Twelve-lead EKG obtained showed sinus rhythm, no acute ST-T wave changes noted. Patient is maintaining sinus rhythm. Review of systems: Rest review of systems negative. Medications: Medications have been reviewed. Reason For Visit: CHEST PAIN (UNSPECIFIED} Physical Exam Vital Signs: Temp Pulse Resp BP Pulse Ox 97.8 F 103 H 16 116/88 H 98 09/02/17 15:34 09/02/17 15:34 09/02/17 15:34 09/02/17 15:34 09/02/17 15:34 Intake & Output 09/02/17 09/03/17 09/04/17 06:59 06:59 06:59 Intake Total 3493 Output Total 1900 Balance 1593 Weight 107.4 kg Exam: GENERAL: well-nourished and in no acute distress. Alert and oriented x3 HEAD: Atraumatic, normocephalic. EYES: Pupils equal round and reactive to light, extraocular movements intact, sclera anicteric, conjunctiva are normal. ENT: TMs normal, nares patent, oropharynx clear without exudates. Moist mucous membranes. No oral ulcerations or bleeding gums noted NECK: supple without lymphadenopathy. Trachea is central. No cervical or axillary lymphadenopathy noted. Carotids are 2+, JVD WNL LUNGS: Respiration seems nonlabored, no significant accessory muscle action noted. Breath sounds clear to auscultation bilaterally and equal noted. No wheezes rales or rhonchi noted. No significant dullness noted on percussion. CHEST: Palpation of the chest wall shows no significant chest wall tenderness. No other significant abnormalities noted. HEART: [place] [employer], No PSH, 1/6 TRAVIS aortic area, 1/6 early systolic murmur mitral area, no rubs, no gallops. ABDOMEN: Soft, no significant tenderness appreciated, normoactive bowel sounds. No guarding, no rebound. No rigidity noted . No masses appreciated. EXTREMITIES: Pedal pulses are 1-2+, no calf tenderness noted. No clubbing or cyanosis.trace to 1+ pedal edema noted NEUROLOGICAL: Focused neurological exam showed no significant neurologic deficit. Normal speech, no focal weakness appreciated. PSYCH: Normal mood, normal affect. Judgment and insight within normal limits. SKIN: No significant ecchymosis, rash, ulcerations or signs of pruritus noted. MUSCULOSKELETAL EXAM: No significant joint swelling noted. Results Laboratory Results: 09/02/17 07:18 09/02/17 07:18 08/31/17 08/31/17 16:30 21:10 Troponin I < 0.012 < 0.012 EKG Comments: Telemetry strip shows sinus rhythm. No sustained tachycardia or bradycardia arrhythmias noted. Impressions: Chest X-Ray 08/31/17 11:22 IMPRESSION: NO ACUTE RADIOGRAPHIC FINDING IN THE CHEST. Chest CT 09/01/17 09:19 IMPRESSION: NO SIGNIFICANT FINDING ON NON-CONTRASTED CHEST CT. Assessment & Plan - Diagnosis (1) Chest pain Qualifiers: Chest pain type: unspecified Qualified Code(s): R07.9 - Chest pain, unspecified Is this a current diagnosis for this admission?: Yes (2) Hypertension Qualifiers: Hypertension type: essential hypertension Qualified Code(s): I10 - Essential (primary) hypertension Is this a current diagnosis for this admission?: Yes (3) Obesity Qualifiers: Obesity type: unspecified obesity type Serious obesity comorbidity presence : unspecified whether serious comorbidity present Is this a current diagnosis for this admission?: Yes (4) Sleep disorder Is this a current diagnosis for this admission?: Yes (5) Helicobacter pylori (H. pylori) Is this a current diagnosis for this admission?: Yes (6) Generalized anxiety disorder with panic attacks Is this a current diagnosis for this admission?: Yes (7) HLD (hyperlipidemia) Qualifiers: Hyperlipidemia type: unspecified Qualified Code(s): E78.5 - Hyperlipidemia , unspecified Is this a current diagnosis for this admission?: Yes - Notes Notes: Nuclear stress test results, 2D echocardiogram results and CT chest results were reviewed with the patient. CT was negative for any significant coronary calcification. Chest pain: Patient claims chest pain resolved. This was evaluated with a nuclear stress test. Nuclear stress test was negative for any significant areas of ischemia or any significant areas of scar. The nuclear stress test is felt to be relatively low risk. Patient informed that occasionally single- vessel disease and balanced ischemia could be missed. Patient advised aggressive risk factor modification and medical therapy. Patient informed that further evaluation may become necessary if symptoms worsens or there is a development of new symptoms indicative of angina or angina equivalent symptom. Hypertension: Under reasonable control. Obesity: Patient encouraged in weight loss. Sleep disorder: Discussed that she would benefit from a sleep study and treatment of sleep apnea. Helicobacter pylori infection: Continue current therapy. Generalized anxiety disorder: Patient has panic symptoms. Patient was placed on Zoloft therapy. Dyslipidemia: Continue statin therapy. - Time Time with patient: Greater than 35 minutes - Patient was seen multiple times. Total time exceeds 40 minutes. In the morning nuclear stress test procedure, risks benefits, alternatives were discussed. Patient seen during the stress test. Patient also seen after stress test when results were discussed with the patient in detail. Patient's questions were answered. Nuclear stress test results were discussed with the patient. Patient was informed that no definitive evidence of pharmacologic stress-induced ischemia noted. No definite fixed defects were noted. Patient informed that occasionally significant single vessel disease or balanced ischemia could be missed. However based on the current study results, would recommend aggressive risk factor modification and medical therapy. It may also be worthwhile to consider evaluation or empiric management of other causes of chest pain. Should no other cause be found and if persistent in having chest pain, then cardiac catheterization should be considered. Right now, recommendations are for aggressive risk factor modification and medical management. CODE STATUS was discussed, patient remains full code. Multiple medical problems were addressed. More than 50% of the time spent coordinating care, discussing management plans with involved caregivers. Management plans discussed with involved personnels. Medical decision making was of moderate to high complexity , patient's has multiple comorbidities. Medications reviewed and adjusted accordingly: Yes
== END 2017-09-02 16:38 | disposition home or self-care (01) ==
LOC: ER 09:22 → EH 12:24 → 4N 15:56
PROVIDERS: ADMIT Emergency Medicine; ATTEND Emergency Medicine
DX: R07.89 Other chest pain (principal); B96.81 Helicobacter pylori [H. pylori] as the cause of diseases classified elsewhere; I10 Essential (primary) hypertension; G35 Multiple sclerosis; R11.0 Nausea; N20.0 Calculus of kidney; G47.9 Sleep disorder, unspecified; R73.03 Prediabetes; E78.5 Hyperlipidemia, unspecified; F41.1 Generalized anxiety disorder; F41.0 Panic disorder [episodic paroxysmal anxiety]; E66.01 Morbid (severe) obesity due to excess calories; K21.9 Gastro-esophageal reflux disease without esophagitis; Z82.49 Family history of ischemic heart disease and other diseases of the circulatory system; Z87.11 Personal history of peptic ulcer disease; Z90.49 Acquired absence of other specified parts of digestive tract; Z68.41 Body mass index [BMI] 40.0-44.9, adult
CPT/HCPCS: 93005 ×2; 99285; 96374; 36415 ×3; 83735; 84100 ×2; 85025 ×3; 81025; 80048 ×2; 80053; 81001; 84484; 83036; 85379; 80061 ×2; 93306; 93017; 71045; 78452; 71250; 93010 ×2; A9500; A9270 ×14; J2785; J3490; J1885; C9113 ×3; J7030; J0280; Q9969; G0378; S0119; S0164

== ENCOUNTER → 2018-02-08 | Outpatient (CLI) | payer MEDICARE, BC ==
--- NOTE | 2018-02-09 10:17 | RADIOLOGY REPORT (SQ) ---
EXAM DESCRIPTION: MRI HEAD WITHOUT COMPLETED DATE/TIME: 02/08/2018 10:29 pm REASON FOR STUDY: G35 MULTIPLE SCLEROSIS G35 MULTIPLE SCLEROSIS COMPARISON: None. TECHNIQUE: Multiplanar imaging includes non-contrasted T1, T2, FLAIR, and diffusion with ADC map seq uences. Images stored on PACS. LIMITATIONS: Claustrophobia. Patient was unable to undergo imaging in the head coil. Flex coil was used. No prior MRI exam here for comparison. Outside studies for comparison not provided FINDINGS: ANATOMY: No anomalies. Normal vascular flow voids. Pituitary fossa normal. CSF SPACES: Normal in size and contour. No hemorrhage. CEREBRUM: On FLAIR images, very subtle foci of increased T2/FLAIR signal in the deep periventricular white matter in the bifrontal and left parietal region. This most likely represents chronic demyelin ating plaque. No MR evidence of acute ischemic change, acute intracranial hemorrhage, mass effect, or midline shift . POSTERIOR FOSSA: No signal alteration. No hemorrhage. No edema, masses or mass effect. Internal humberto tory canals, cerebello-pontine angles, mastoids normal. DIFFUSION IMAGING: Negative for acute or sub-acute infarction. ORBITS: No masses. Globes normal. PARANASAL SINUSES: Mild mucous membrane thickening in the ethmoid air cells and maxillary sinuses bi laterally. OTHER: No other significant finding. IMPRESSION: Very subtle punctate foci of increased FLAIR/ T2 signal in the deep periventricular whit e matter likely old chronic demyelinating disease. No acute findings. EVIDENCE OF ACUTE STROKE: NO. TECHNICAL DOCUMENTATION: JOB ID: [id number] [employer]- All Rights Reserved Reading location - IP/workstation name: [email or web address]
== END ==
LOC: RAD 20:23
PROVIDERS: ATTEND Psychiatry & Neurology Neurology
DX: G35 Multiple sclerosis (principal)
CPT/HCPCS: 70551